=== PATIENT | female | born 1965 | race Caucasian/White ===

== ENCOUNTER 2016-04-19 21:51 | Emergency (ER) | payer SELFPAY ==
[2016-04-19] MEDS ORDERED: ASPIRIN 81 MG TABLET, CHEWABLE PO ONE (23:09)
[2016-04-19 23:57] LABS: ABSOLUTE EOSINOPHILS # (AUTO) 0.1 10^3/uL (0.0-0.6); ABSOLUTE LYMPHOCYTES (AUTO) 0.6 10^3/uL (0.5-4.7); ABSOLUTE MONOCYTES (AUTO) 0.4 10^3/uL (0.1-1.4); ABSOLUTE NEUT (AUTO) 2.7 10^3/uL (1.7-8.2); BASOPHILS % (AUTO) 0.7 % (0-2); EOSINOPHILS % (AUTO) 1.9 % (0-6); HEMATOCRIT 38.1 % (36.0-47.0); HEMOGLOBIN 12.9 g/dL (12.0-15.5); HGB HCT DIFFERENCE 0.6; LYMPHOCYTES % (AUTO) 15.5 % (13-45); MEAN CORPUSCULAR HEMOGLOBIN 29.5 pg (27.0-33.4); MEAN CORPUSCULAR VOLUME 87 fl (80-97); MONOCYTES % (AUTO) 10.9 % (3-13); RED BLOOD COUNT 4.39 10^6/uL (3.72-5.28); RED CELL DISTRIBUTION WIDTH 14.5 % (11.5-14.0); WHITE BLOOD COUNT 3.7 10^3/uL (4.0-10.5)
--- NOTE | 2016-04-20 00:10 | EKG REPORT ---
SEVERITY:- ABNORMAL ECG - ATRIAL-PACED RHYTHM : Confirmed by: Andrzej Stewart 20-Apr-2016 00:10:01
[2016-04-20 00:21] LABS: ALANINE AMINOTRANSFERASE 30 U/L (9-52); ALBUMIN 4.2 g/dL (3.5-5.0); ALKALINE PHOSPHATASE 86 U/L (38-126); ANION GAP 9 (5-19); ASPARTATE AMINO TRANSFERASE 35 U/L (14-36); BILIRUBIN,TOTAL 0.5 mg/dL (0.2-1.3); BLOOD UREA NITROGEN 11 mg/dL (7-20); CALCIUM 9.5 mg/dL (8.4-10.2); CARBON DIOXIDE 27 mmol/L (22-30); CHLORIDE 101 mmol/L (98-107); CREATINE KINASE 54 U/L (30-135); CREATININE RESULT 0.79 mg/dL (0.52-1.25); GLUCOSE 97 mg/dL (75-110); POTASSIUM 4.3 mmol/L (3.6-5.0); SODIUM 136.6 mmol/L (137-145); TOTAL PROTEIN 6.8 g/dL (6.3-8.2)
[2016-04-20 00:32] LABS: CREATINE KINASE MB 0.73 ng/mL (<4.55); TROPONIN I < 0.012 ng/mL
[2016-04-20 06:33] VITALS: BP 123/52
[2016-04-20] MEDS ORDERED: HYDROXYZINE PAMOATE 50 MG CAPSULE PO ONE (06:58)
--- NOTE | 2016-04-20 07:02 | ER Document Report ---
ED General - General Time seen by provider: 06:48 Mode of Arrival: Ambulatory Information source: Patient - HPI Onset: Other - see HPI note <ALFIE INFANTE - Last Filed: 04/20/16 08:32> <SKIP BERGER - Last Filed: 04/20/16 09:12> - General Chief Complaint: Chest Pain Stated Complaint: CHEST PAIN Notes: Patient is a 51 year old female presenting to the emergency department for some anxiety and is unsure if her pacemaker is working properly. Patient states that he just recently got out of residential. Patient was started on eliquis after having her pacemaker placed in November 2015. Patient states she is concerned about her blood pressure and possible blood clots since she has run out of her eliquis. Patient also complains of some anxiety and states she has been scratching her upper and lower extremities bilaterally; patient states that this occurred while he was in residential as well. Patient believes that this is related to her anxiety. Patient has not established a PCP because she is waiting for her medicaid and medicare disability. Patient had a ASD patch placed in 1968 and it was repaired/replaced in January 2015. Patient's pacemaker was placed from chronic A-fib. Patient has recently been started on pristiq. Patient was in residential for approximately 4.5 years according to [facility] records. Patient states she is trying to re-adjust to her life now since she is no longer in residential. (ALFIE INFANTE) - Related Data Allergies/Adverse Reactions: No Known Allergies Allergy (Unverified 04/19/16 23:06) Past Medical History - General Information source: Patient, [facility] Records - Social History Smoking Status: Current Every Day Smoker Frequency of alcohol use: None Drug Abuse: None Family History: None Patient has suicidal ideation: No Patient has homicidal ideation: No - Past Medical History Cardiac Medical History: Reports: Hx Atrial Fibrillation, Hx Hypertension Psychiatric Medical History: Reports: Hx Anxiety, Hx Depression Past Surgical History: Reports: Hx Cardiac Surgery - x2: ASD patch placed in 1968, repaired/replaced 2014, Hx Pacemaker - 2015 - Immunizations Hx Diphtheria, Pertussis, Tetanus Vaccination: No <ALFIE INFANTE - Last Filed: 04/20/16 08:32> Review of Systems - Review of Systems Constitutional: No symptoms reported EENT: No symptoms reported Cardiovascular: See HPI Respiratory: No symptoms reported Gastrointestinal: See HPI, Nausea Genitourinary: No symptoms reported Female Genitourinary: No symptoms reported Musculoskeletal: No symptoms reported Skin: See HPI Hematologic/Lymphatic: No symptoms reported Neurological/Psychological: See HPI -: Yes All other systems reviewed and negative <ALFIE INFANTE - Last Filed: 04/20/16 08:32> Physical Exam - Vital signs Interpretation: Normal - General General appearance: Appears well, Alert In distress: Mild - HEENT Head: Normocephalic, Atraumatic Eyes: Normal Pupils: PERRL Mucous membranes: Moist - Respiratory Respiratory status: No respiratory distress Chest status: Nontender Breath sounds: Normal Chest palpation: Normal - Cardiovascular Rhythm: Regular Heart sounds: Normal auscultation Murmur: No - Abdominal Inspection: Obese Distension: No distension Bowel sounds: Normal Tenderness: Nontender Organomegaly: No organomegaly - Back Back: Normal, Nontender - Extremities General upper extremity: Normal ROM, Normal strength General lower extremity: Normal ROM, Normal strength. No: Edema - Neurological Neuro grossly intact: Yes Cognition: Normal Orientation: AAOx4 [place] Coma Scale Eye Opening: Spontaneous [place] Coma Scale Verbal: Oriented [place] Coma Scale Motor: Obeys Commands [place] Coma Scale Total: 15 Speech: Normal - Psychological Associated symptoms: Normal affect, Anxious - Skin Skin Temperature: Warm Skin Moisture: Dry Skin irregularity: other <ALFIE INFANTE - Last Filed: 04/20/16 08:32> Course - Laboratory Result Diagrams: 04/19/16 23:37 04/19/16 23:37 <ALFIE INFANTE - Last Filed: 04/20/16 08:32> - Laboratory Result Diagrams: 04/19/16 23:37 04/19/16 23:37 - Diagnostic Test Radiology reviewed: Image reviewed, Reports reviewed - Chest x-ray does not show any acute process - EKG Interpretation by Me EKG shows normal: Ranger, Intervals, QRS Complexes, ST-T Waves Rate: Normal - 61 Rhythm: Other <SKIP BERGER - Last Filed: 04/20/16 09:12> - Re-evaluation Re-evalutation: 04/20/16 08:18 I told the patient I would try to have the hospitalist come see her to facilitate her getting her Eliquis which she cannot afford. They have access to programs for indigent patients to help with this medication , in the emergency room we do not have the same access. At the time told her this, the hospitalists were in their morning patient exchange/report and it would be at least 30 minutes before they would answer the phones. The patient decided she would not wait and left during the time frame when the hospitalists would not answer. She told the nurse she would just go to the [facility] to get her medicine. (SKIP BERGER) - Vital Signs Vital signs: Temp Pulse Resp BP Pulse Ox 100.4 F 63 18 123/52 L 99 04/19/16 23:02 04/19/16 23:02 04/20/16 06:02 04/20/16 06:02 04/20/16 07:13 (ALFIE INFANTE) (SKIP BERGER) - Laboratory Laboratory results interpreted by me: 04/19/16 04/19/16 23:37 23:37 WBC 3.7 L RDW 14.5 H Plt Count 117 L Sodium 136.6 L (ALFIE INFANTE) (SKIP BERGER) Discharge <ALFIE INFANTE - Last Filed: 04/20/16 08:32> <SKIP BERGER - Last Filed: 04/20/16 09:12> - Discharge Clinical Impression: Has run out of medications, Pruritus, Anxiety Condition: Stable Disposition: ELOPED Scribe Attestation: 04/20/16 09:12 I personally performed the services described in the documentation, reviewed and edited the documentation which was dictated to the scribe in my presence, and it accurately records my words and actions. (SKIP BERGER) Scribe Documentation - Scribe Written by Tio:: Alfie Infante 04/20/16 8:40 acting as scribe for :: Sandip <ALFIE INFANTE - Last Filed: 04/20/16 08:32>
== END 2016-04-20 07:30 | disposition left against medical advice (07) ==
LOC: ER 21:51
DX: L29.9 Pruritus, unspecified (principal); F41.9 Anxiety disorder, unspecified; R07.9 Chest pain, unspecified; E66.9 Obesity, unspecified; F17.200 Nicotine dependence, unspecified, uncomplicated; Z95.0 Presence of cardiac pacemaker; Z79.02 Long term (current) use of antithrombotics/antiplatelets; Z53.9 Procedure and treatment not carried out, unspecified reason
CPT/HCPCS: 36415; 71010; 80053; 82550; 82553; 84484; 85025; 93005; 93010; 99281

== ENCOUNTER 2016-12-05 19:13 | Emergency (ER) | payer MEDICARE, OTHER ==
[2016-12-05 19:31] VITALS: BP 126/56
[2016-12-05] MEDS ORDERED: HYDROCODONE/ACETAMINOPHEN 5-325 MG 6 TAB/DSPK PO PRN (19:42)
--- NOTE | 2016-12-05 19:42 | ER Document Report ---
HPI - HPI Patient complains to provider of: bilateral wrist pain Pain Level: 5 Context: Patient is a 51-year-old female presents emergency department complaining of worsening carpal tunnel pain. Patient states that she was diagnosed with this 2 months ago and placed in splints. She states she has been wearing them at night with minimal improvement in her symptoms. Patient states that she has not been able sleep over the past couple nights secondary to the pain. Patient states that she is been to follow-up with her primary care provider this week. - REPRODUCTIVE Reproductive: DENIES: : - DERM Skin Color: Normal Past Medical History - Social History Smoking Status: Current Every Day Smoker Family History: None Patient has suicidal ideation: No Patient has homicidal ideation: No - Past Medical History Cardiac Medical History: Reports: Hx Atrial Fibrillation, Hx Hypertension Renal/ Medical History: Denies: Hx Peritoneal Dialysis Psychiatric Medical History: Reports: Hx Anxiety, Hx Depression Past Surgical History: Reports: Hx Cardiac Surgery - x2: ASD patch placed in 1968, repaired/replaced 2014, Hx Pacemaker - 2015 - Immunizations Hx Diphtheria, Pertussis, Tetanus Vaccination: No Vertical Provider Document - CONSTITUTIONAL Agree With Documented VS: Yes Exam Limitations: No Limitations General Appearance: WD/WN, No Apparent Distress Notes: PHYSICAL EXAM GENERAL: Alert, interacts well. ABDOMEN: Soft, nondistended, nontender. No guarding, rebound, or rigidity.. Bowel sounds present in all 4 quadrants. EXTREMITIES: Positive Tinel sign in bilateral wrists reproducible symptoms with reversed prior stimulation moves all 4 extremities spontaneously. No edema, radial and radial pulses 2/4 bilaterally. No cyanosis. NEUROLOGICAL: Alert and oriented x4. Normal speech. PSYCH: Normal affect, normal mood. SKIN: Warm, dry, normal turgor. No rashes or lesions noted. - INFECTION CONTROL TRAVEL OUTSIDE OF THE [place] IN LAST 30 DAYS: No - RESPIRATORY O2 Sat by Pulse Oximetry: 97 Course - Re-evaluation Re-evalutation: 12/05/16 20:26 Patient is a 51-year-old female is hemodynamic stable, no acute distress and afebrile. Presentation is consistent with carpal tunnel syndrome. Patient initiated on steroid and told to follow-up with her primary care provider. Patient was sent home with a limited amount of pain medication to help with her sleeping. Patient agrees with plan and stable for discharge. - Vital Signs Vital signs: Temp Pulse Resp BP Pulse Ox 98.5 F 59 L 18 126/56 H 97 12/05/16 19:28 12/05/16 19:28 12/05/16 19:28 12/05/16 19:28 12/05/16 19:28 Discharge - Discharge Clinical Impression: Carpal tunnel syndrome Condition: Good Disposition: HOME, SELF-CARE Instructions: Carpal Tunnel Syndrome ([facility]) Additional Instructions: Please continue using your splints 20/09. Follow up with your primary care for possible referral for surgery Prescriptions: Methylprednisolone [Medrol Dosepack (4 mg/Tab) 21 Tab/Dosepak] 4 mg PO ASDIR PRN #21 tab.ds.[id number] PRN Reason: Referrals: DEANNA RUSSO DO [ACTIVE STAFF] - Follow up as needed
== END 2016-12-05 19:55 | disposition home or self-care (01) ==
LOC: ER 19:13
DX: G56.03 Carpal tunnel syndrome, bilateral upper limbs (principal); F17.200 Nicotine dependence, unspecified, uncomplicated; I48.91 Unspecified atrial fibrillation; I10 Essential (primary) hypertension; Z95.0 Presence of cardiac pacemaker
CPT/HCPCS: 99283; A9270

== ENCOUNTER 2017-01-05 11:02 | Inpatient (IN) | payer MEDICARE, OTHER ==
[2017-01-05] MEDS ORDERED: NORMAL SALINE 1000 ML 1,000 ML IV ONE (11:33)
--- NOTE | 2017-01-05 11:34 | ER Document Report ---
ED Medical Screen (RME) - General Chief Complaint: Abnormal Lab Results Stated Complaint: SHORTNESS OF BREATH/ABNORMAL LABS Time Seen by Provider: 01/05/17 11:32 Notes: Patient states she has been short of breath and weak for 1 week. She states she went to an urgent care yesterday and had some labs drawn. She states she received a phone call this morning told her that her hemoglobin was 6. Patient states she has a history of atrial fibrillation and the rate is been hard to control so a pacemaker has been placed. She states she was on Eliquis up until 6 days ago due to this condition. Eliquis was stopped because she was going to have carpal tunnel surgery. She states she has been having black tarry stools last several days. TRAVEL OUTSIDE OF THE [place] IN LAST 30 DAYS: No - Related Data Allergies/Adverse Reactions: carbamazepine [From Tegretol] Allergy (Verified 01/05/17 11:04) Past Medical History - Social History Chew tobacco use (# tins/day): No Frequency of alcohol use: None Drug Abuse: None - Past Medical History Cardiac Medical History: Reports: Hx Atrial Fibrillation, Hx Hypertension Renal/ Medical History: Denies: Hx Peritoneal Dialysis Psychiatric Medical History: Reports: Hx Anxiety, Hx Depression Past Surgical History: Reports: Hx Cardiac Surgery - x2: ASD patch placed in 1968, repaired/replaced 2014, Hx Pacemaker - 2015 - Immunizations Hx Diphtheria, Pertussis, Tetanus Vaccination: No Physical Exam - Vital signs Vitals: Temp Pulse Resp BP Pulse Ox 98.6 F 94 20 143/67 H 99 01/05/17 11:06 01/05/17 11:06 01/05/17 11:06 01/05/17 11:06 01/05/17 11:06 Course - Vital Signs Vital signs: Temp Pulse Resp BP Pulse Ox 98.6 F 94 20 143/67 H 99 01/05/17 11:06 01/05/17 11:06 01/05/17 11:06 01/05/17 11:06 01/05/17 11:06
[2017-01-05 12:26] LABS: APPEARANCE,URINE SLIGHTLY-CLOUDY; BILIRUBIN,URINE NEGATIVE (NEGATIVE); GLUCOSE, URINE NEGATIVE (NEGATIVE); KETONES,URINE NEGATIVE (NEGATIVE); LEUKOCYTE ESTERASE,URINE TRACE (NEGATIVE); NITRITE,URINE NEGATIVE (NEGATIVE); PROTEIN,URINE NEGATIVE (NEGATIVE); URINE SPECIFIC GRAVITY 1.017; UROBILINOGEN,URINE NEGATIVE mg/dL (<2.0)
[2017-01-05 12:29] LABS: ABSOLUTE EOSINOPHILS # (AUTO) 0.2 10^3/uL (0.0-0.6); ABSOLUTE LYMPHOCYTES (AUTO) 0.7 10^3/uL (0.5-4.7); ABSOLUTE MONOCYTES (AUTO) 0.7 10^3/uL (0.1-1.4); ABSOLUTE NEUT (AUTO) 2.9 10^3/uL (1.7-8.2); BASOPHILS % (AUTO) 0.4 % (0-2); HEMATOCRIT 21.9 % (36.0-47.0); HGB HCT DIFFERENCE 0.6; LYMPHOCYTES % (AUTO) 16.2 % (13-45); MEAN CORPUSCULAR HGB CONC 34.1 g/dL (32.0-36.0); MEAN CORPUSCULAR VOLUME 88 fl (80-97); MONOCYTES % (AUTO) 14.8 % (3-13); RED BLOOD COUNT 2.49 10^6/uL (3.72-5.28); RED CELL DISTRIBUTION WIDTH 14.4 % (11.5-14.0); SEGMENTED NEUTROPHILS % (AUTO) 64.6 % (42-78); WHITE BLOOD COUNT 4.5 10^3/uL (4.0-10.5)
[2017-01-05 12:34] LABS: HEMOGLOBIN 7.5 g/dL (12.0-15.5)
[2017-01-05 12:46] LABS: ALANINE AMINOTRANSFERASE 30 U/L (9-52); ALBUMIN 3.5 g/dL (3.5-5.0); ALKALINE PHOSPHATASE 54 U/L (38-126); ANION GAP 10 (5-19); ASPARTATE AMINO TRANSFERASE 23 U/L (14-36); BILIRUBIN,DIRECT 0.2 mg/dL (0.0-0.4); BILIRUBIN,TOTAL 0.4 mg/dL (0.2-1.3); BLOOD UREA NITROGEN 19 mg/dL (7-20); CALCIUM 9.1 mg/dL (8.4-10.2); CARBON DIOXIDE 23 mmol/L (22-30); CHLORIDE 106 mmol/L (98-107); CREATININE RESULT 0.93 mg/dL (0.52-1.25); GLUCOSE 95 mg/dL (75-110); POTASSIUM 4.8 mmol/L (3.6-5.0); SODIUM 139.4 mmol/L (137-145); TOTAL PROTEIN 5.8 g/dL (6.3-8.2)
[2017-01-05] MEDS ORDERED: PANTOPRAZOLE SODIUM 40 MG VIAL IV ONE (13:26)
[2017-01-05] MEDS ORDERED: PANTOPRAZOLE SODIUM 40 MG VIAL IV PRN ×2 (13:27→14:42)
[2017-01-05] MEDS ORDERED: NORMAL SALINE 250 ML IV PRN ×4 (13:36→15:16)
--- NOTE | 2017-01-05 14:20 | RADIOLOGY REPORT (SQ) ---
EXAM DESCRIPTION: ACUTE ABDOMEN SERIES COMPLETED DATE/TIME: 01/05/2017 2:10 pm REASON FOR STUDY: epi pain COMPARISON: None. NUMBER OF VIEWS: Three views. TECHNIQUE: Frontal chest, supine abdomen and upright abdomen radiographic images acquired. LIMITATIONS: None. FINDINGS: CHEST: Lungs clear of infiltrates. FREE AIR: None. No abnormal gas collections. BOWEL GAS PATTERN: Nonobstructive pattern. No dilated loops or air fluid levels. CALCIFICATIONS: No suspicious calcifications. HARDWARE: None in the abdomen. SOFT TISSUES: No gross mass or suggestion of organomegaly. BONES: No acute fracture. No worrisome bone lesions. OTHER: No other significant finding. IMPRESSION: NO RADIOGRAPHIC EVIDENCE FOR ACUTE ABDOMINAL DISEASE. TECHNICAL DOCUMENTATION: JOB ID: [id number] [employer]- All Rights Reserved
[2017-01-05 14:40] LABS: PARTIAL THROMBOPLASTIN TIME 30.4 SEC (23.5-35.8); PROTHROMBIN TIME 13.3 SEC (11.4-15.4)
--- NOTE | 2017-01-05 14:47 | ER Document Report ---
ED General - General Chief Complaint: Abnormal Lab Results Stated Complaint: SHORTNESS OF BREATH/ABNORMAL LABS Time Seen by Provider: 01/05/17 11:32 TRAVEL OUTSIDE OF THE [place] IN LAST 30 DAYS: No - HPI Patient complains to provider of: Abnormal laboratory studies Notes: Patient coming in for evaluation of abnormal laboratory studies. Patient states recently released from snf having epigastric abdominal pain with this to a local urgent care where laboratory studies were performed states that she was notified her hemoglobin was 6 or 6.5 by local urgent care and told to come to the ER. Patient states increased use of anti-inflammatory medications especially Advil. Patient denies a history of GI bleed in the past. Patient states history of atrial fibrillation recently stopped her Eliquis due to a scheduled upcoming surgery. Patient states coming in for shortness of breath and fatigue as well. Denies any alcohol use. Patient resting comfortably upon my evaluation. States black stools ongoing for the last 3-4 days. - Related Data Allergies/Adverse Reactions: carbamazepine [From Tegretol] Allergy (Verified 01/05/17 11:04) Home Medications: Current Home Medications Divalproex Sodium [Depakote] 500 mg PO Q12 01/05/17 [History] Escitalopram Oxalate [Lexapro] 40 mg PO DAILY 01/05/17 [History] Ibuprofen [Advil] 400 mg PO BIDP PRN 01/05/17 [History] Levothyroxine Sodium [Synthroid] 125 mcg PO QAM 01/05/17 [History] Meloxicam [Mobic] 7.5 mg PO DAILYP PRN 01/05/17 [History] Naproxen Sodium [Aleve] 440 mg PO BIDP PRN 01/05/17 [History] Ropinirole HCl [Requip] 0.5 mg PO Q12 01/05/17 [History] Trazodone HCl [Desyrel] 100 mg PO DAILY 01/05/17 [History] Past Medical History - Social History Smoking Status: Former Smoker Chew tobacco use (# tins/day): No Frequency of alcohol use: None Drug Abuse: None Family History: None Patient has suicidal ideation: No Patient has homicidal ideation: No - Past Medical History Cardiac Medical History: Reports: Hx Atrial Fibrillation, Hx Hypertension Renal/ Medical History: Denies: Hx Peritoneal Dialysis Psychiatric Medical History: Reports: Hx Anxiety, Hx Depression Past Surgical History: Reports: Hx Cardiac Surgery - x2: ASD patch placed in 1968, repaired/replaced 2014, Hx Pacemaker - 2015 - Immunizations Hx Diphtheria, Pertussis, Tetanus Vaccination: No Review of Systems - Review of Systems Constitutional: No symptoms reported EENT: No symptoms reported Cardiovascular: No symptoms reported Respiratory: No symptoms reported Gastrointestinal: Abdominal pain, Black stools, Rectal bleeding Genitourinary: No symptoms reported Female Genitourinary: No symptoms reported Musculoskeletal: No symptoms reported Skin: No symptoms reported Hematologic/Lymphatic: No symptoms reported Neurological/Psychological: No symptoms reported Physical Exam - Vital signs Vitals: Temp Pulse Resp BP Pulse Ox 98.6 F 94 20 143/67 H 99 01/05/17 11:06 01/05/17 11:06 01/05/17 11:06 01/05/17 11:06 01/05/17 11:06 Interpretation: Normal - General General appearance: Appears well, Alert - HEENT Head: Normocephalic, Atraumatic Eyes: Normal Pupils: PERRL - Respiratory Respiratory status: No respiratory distress Chest status: Nontender Breath sounds: Normal Chest palpation: Normal - Cardiovascular Rhythm: Regular Heart sounds: Normal auscultation Murmur: No - Abdominal Inspection: Normal Distension: No distension Bowel sounds: Normal Tenderness: Tender - Epigastric abdominal pain mild on examination no guarding or rebound Organomegaly: No organomegaly - Rectal Stool: Heme negative, Other - No stool in rectal vault - Back Back: Normal, Nontender - Extremities General upper extremity: Normal inspection, Nontender, Normal color, Normal ROM , Normal temperature General lower extremity: Normal inspection, Nontender, Normal color, Normal ROM , Normal temperature, Normal weight bearing. No: Parag's sign - Neurological Neuro grossly intact: Yes Cognition: Normal Orientation: AAOx4 [place] Coma Scale Eye Opening: Spontaneous [place] Coma Scale Verbal: Oriented [place] Coma Scale Motor: Obeys Commands [place] Coma Scale Total: 15 Speech: Normal Motor strength normal: LUE, RUE, LLE, RLE Sensory: Normal - Psychological Associated symptoms: Normal affect, Normal mood - Skin Skin Temperature: Warm Skin Moisture: Dry Skin Color: Normal Course - Re-evaluation Re-evalutation: 01/05/17 15:55 Hemoccult was negative although the patient does have anemia and considering the patient's history of NSAID use and history given of black stools patient will be admitted for GI bleed. Patient was started on Protonix and a Protonix drip. Discussed with the hospitalist will admit the patient for further evaluation. - Vital Signs Vital signs: Temp Pulse Resp BP Pulse Ox 98.6 F 94 20 143/67 H 99 01/05/17 11:06 01/05/17 11:06 01/05/17 11:06 01/05/17 11:06 01/05/17 11:06 - Laboratory Result Diagrams: 01/05/17 11:50 01/05/17 11:50 Laboratory results interpreted by me: 01/05/17 01/05/17 01/05/17 11:50 11:50 11:50 RBC 2.49 L Hgb 7.5 L Hct 21.9 L RDW 14.4 H Monocytes % 14.8 H Total Protein 5.8 L Ur Leukocyte Esterase Crossmatch See Detail 01/05/17 11:50 RBC Hgb Hct RDW Monocytes % Total Protein Ur Leukocyte Esterase TRACE H Crossmatch Discharge - Discharge Clinical Impression: GI bleed Qualifiers: GI bleed type/associated pathology: unspecified gastrointestinal hemorrhage type Qualified Code(s): K92.2 - Gastrointestinal hemorrhage, unspecified Anemia Qualifiers: Anemia type: other cause Other causes of anemia: acute posthemorrhagic Qualified Code(s): D62 - Acute posthemorrhagic anemia Condition: Good Disposition: ADMITTED INPATIENT Admitting Provider: Hospitalist - [facility] Admitted: [facility] Referrals: KAREL DUCKWORTH PA [Primary Care Provider] - Follow up as needed
[2017-01-05] MEDS: RINGERS SOLUTION,LACTATED 1,000 ML IV PRN ×2 (15:15→21:19)
[2017-01-05] MEDS: NORMAL SALINE 100 ML with PANTOPRAZOLE SODIUM 80 MG IV PRN ×2 (15:16)
[2017-01-05] MEDS ORDERED: FUROSEMIDE INJ/PF 20 MG/2 ML SDV IV PRN (15:16)
[2017-01-05 15:26] LABS: HEMATOCRIT 21.7 % (36.0-47.0); HGB HCT DIFFERENCE 1.1; MEAN CORPUSCULAR HEMOGLOBIN 30.2 pg (27.0-33.4); MEAN CORPUSCULAR HGB CONC 34.8 g/dL (32.0-36.0); MEAN CORPUSCULAR VOLUME 87 fl (80-97); RED CELL DISTRIBUTION WIDTH 14.5 % (11.5-14.0); WHITE BLOOD COUNT 4.4 10^3/uL (4.0-10.5)
[2017-01-05] MEDS: ONDANSETRON HCL INJ/PF 4 MG/2 ML SDV IV PRN (15:35)
--- NOTE | 2017-01-05 15:40 | PDOC H&P ---
History of Present Illness Admission Date/PCP: SELINA REILLY January 05, 2017 Patient complains of: Stomach pain worse since yesterday History of Present Illness: KANDI GUTIERREZ is a 51 year old female presented to the emergency room complaining of stomach pain going all the way to her back which had worsened since yesterday. Patient states that she has been having pain off and on during the course of 1 year. However recently she had been having weakness, dizziness and nausea and she went to see her primary care provider at the urgent care. Blood work was obtained yesterday and then she was called in today and told her hemoglobin was very low and that she needed to come to emergency room. Patient complains of passing black tarry stool last week. She stopped taking Eliquis (she was placed on these medication due to a prior history of atrial fibrillation secondary to ASD). She took herself off as she was anticipating to undergo carpal tunnel syndrome. She also complain of easy bruising while on this medication. She suffers from bipolar disorder and takes Lexapro and Depakote. She has been treating the pain with Motrin and Advil. When evaluated in the emergency room hemoglobin was still low and the hospitalist service was contacted for further management. Patient has been started on Protonix drip while in emergency room. Past Medical History Cardiac Medical History: Reports: Atrial Fibrillation, Hypertension Pulmonary Medical History: Reports: Sleep Apnea Endocrine Medical History: Reports: Hypothyroidism Musculoskeltal Medical History: Reports: Other - Bilateral carpal tunnel Musculoskeletal History Note: Restless leg syndrome Psychiatric Medical History: Reports: Bipolar Disorder, Depression Past Surgical History Past Surgical History: Reports: Pacemaker - 2015, Other - ASD repair Social History Smoking Status: Former Smoker Drugs: None Hx Prescription Drug Abuse: No Family History Family History: None Parental Family History Reviewed: Yes Children Family History Reviewed: Yes Sibling(s) Family History Reviewed.: Yes Medication/Allergy Allergies/Adverse Reactions: carbamazepine [From Tegretol] Allergy (Verified 01/05/17 11:04) Review of Systems Constitutional: PRESENT: fatigue, weakness, weight gain Eyes: ABSENT: visual disturbances Ears: ABSENT: hearing changes Nose, Mouth, and Throat: ABSENT: headache(s), mouth pain, sore throat Cardiovascular: PRESENT: dyspnea on exertion, edema Respiratory: PRESENT: dyspnea Gastrointestinal: PRESENT: abdominal pain, bloating, hematochezia, nausea Genitourinary: ABSENT: dysuria, hematuria Musculoskeletal: ABSENT: deformity, joint swelling Integumentary: PRESENT: lesions Neurological: PRESENT: weakness. ABSENT: abnormal gait Psychiatric: PRESENT: depression Hematologic/Lymphatic: PRESENT: easy bruising Physical Exam Vital Signs: Temp Pulse Resp BP Pulse Ox 98.6 F 94 20 143/67 H 99 01/05/17 11:06 01/05/17 11:06 01/05/17 11:06 01/05/17 11:06 01/05/17 11:06 Intake & Output 01/04/17 01/05/17 01/06/17 06:59 06:59 06:59 Weight 105 kg General appearance: PRESENT: no acute distress, cooperative, morbidly obese Head exam: PRESENT: atraumatic, normocephalic Eye exam: PRESENT: EOMI, PERRLA Ear exam: PRESENT: normal external ear exam Mouth exam: PRESENT: moist, neck supple Neck exam: PRESENT: full ROM. ABSENT: JVD, lymphadenopathy, tenderness, thyromegaly Respiratory exam: PRESENT: clear to auscultation lulu Cardiovascular exam: PRESENT: RRR. ABSENT: diastolic murmur, gallop, systolic murmur Vascular exam: PRESENT: normal capillary refill GI/Abdominal exam: PRESENT: distended, normal bowel sounds, tenderness Extremities exam: PRESENT: full ROM, +2 edema Neurological exam: PRESENT: alert, oriented to person, oriented to place, oriented to time Psychiatric exam: PRESENT: anxious Skin exam: PRESENT: other - Ecchymotic lesions in upper and lower extremities Results Laboratory Results: 01/05/17 13:30 01/05/17 01/05/17 01/05/17 11:50 11:50 11:50 WBC 4.5 RBC 2.49 L Hgb 7.5 L Hct 21.9 L MCV 88 MCH 30.0 MCHC 34.1 RDW 14.4 H Plt Count 158 Seg Neutrophils % 64.6 Lymphocytes % 16.2 Monocytes % 14.8 H Eosinophils % 4.0 Basophils % 0.4 Absolute Neutrophils 2.9 Absolute Lymphocytes 0.7 Absolute Monocytes 0.7 Absolute Eosinophils 0.2 Absolute Basophils 0.0 Sodium 139.4 Potassium 4.8 Chloride 106 Carbon Dioxide 23 Anion Gap 10 BUN 19 Creatinine 0.93 Est GFR ( Amer) > 60 Est GFR (Non-Af Amer) > 60 Glucose 95 Calcium 9.1 Total Bilirubin 0.4 AST 23 ALT 30 Alkaline Phosphatase 54 Total Protein 5.8 L Albumin 3.5 Lipase Urine Color Urine Appearance Urine pH Ur Specific Morgan[place] Urine Protein Urine Glucose (UA) Urine Ketones Urine Blood Urine Nitrite Ur Leukocyte Esterase Urine WBC (Auto) Urine RBC (Auto) Stool Occult Blood Blood Type O NEGATIVE Antibody Screen NEGATIVE 01/05/17 01/05/17 01/05/17 11:50 13:25 13:27 WBC RBC Hgb Hct MCV MCH MCHC RDW Plt Count Seg Neutrophils % Lymphocytes % Monocytes % Eosinophils % Basophils % Absolute Neutrophils Absolute Lymphocytes Absolute Monocytes Absolute Eosinophils Absolute Basophils Sodium Potassium Chloride Carbon Dioxide Anion Gap BUN Creatinine Est GFR ( Amer) Est GFR (Non-Af Amer) Glucose Calcium Total Bilirubin AST ALT Alkaline Phosphatase Total Protein Albumin Lipase 103.1 Urine Color YELLOW Urine Appearance SLIGHTLY-CLOUDY Urine pH 5.0 Ur Specific [place] 1.017 Urine Protein NEGATIVE Urine Glucose (UA) NEGATIVE Urine Ketones NEGATIVE Urine Blood NEGATIVE Urine Nitrite NEGATIVE Ur Leukocyte Esterase TRACE H Urine WBC (Auto) 1 Urine RBC (Auto) 0 Stool Occult Blood NEGATIVE Blood Type Antibody Screen 01/05/17 01/05/17 13:30 13:30 WBC Cancelled RBC Cancelled Hgb Cancelled Hct Cancelled MCV Cancelled MCH Cancelled MCHC Cancelled RDW Cancelled Plt Count Cancelled Seg Neutrophils % Cancelled Lymphocytes % Cancelled Monocytes % Cancelled Eosinophils % Cancelled Basophils % Cancelled Absolute Neutrophils Cancelled Absolute Lymphocytes Cancelled Absolute Monocytes Cancelled Absolute Eosinophils Cancelled Absolute Basophils Cancelled Sodium Cancelled Potassium Cancelled Chloride Cancelled Carbon Dioxide Cancelled Anion Gap Cancelled BUN Cancelled Creatinine Cancelled Est GFR ( Amer) Cancelled Est GFR (Non-Af Amer) Cancelled Glucose Cancelled Calcium Cancelled Total Bilirubin AST ALT Alkaline Phosphatase Total Protein Albumin Lipase Urine Color Urine Appearance Urine pH Ur Specific Morganza Urine Protein Urine Glucose (UA) Urine Ketones Urine Blood Urine Nitrite Ur Leukocyte Esterase Urine WBC (Auto) Urine RBC (Auto) Stool Occult Blood Blood Type Antibody Screen Impressions: Acute Abdomen Series 01/05/17 13:26 IMPRESSION: NO RADIOGRAPHIC EVIDENCE FOR ACUTE ABDOMINAL DISEASE. Assessment & Plan - Diagnosis (1) Bipolar disorder (manic depression) Qualifiers: Current bipolar episode type: hypomanic Is this a current diagnosis for this admission?: Yes Plan: Will hold of antipsychotic medications. (2) Anemia Qualifiers: Anemia type: other cause Other causes of anemia: acute posthemorrhagic Qualified Code(s): D62 - Acute posthemorrhagic anemia Is this a current diagnosis for this admission?: Yes Plan: Patient will be admitted to intensive care unit. Hemoglobin will be trended every 6 hours. Will order transfusion of 1 packed red blood cells with administration of Lasix 20 mg IV prior to transfusing. (3) GI bleed Qualifiers: GI bleed type/associated pathology: unspecified gastrointestinal hemorrhage type Qualified Code(s): K92.2 - Gastrointestinal hemorrhage, unspecified Is this a current diagnosis for this admission?: Yes Plan: Likely due to peptic ulcer disease secondary to NSAIDs and SSRIs. Will continue with Protonix drip. Contacted Dr. Murray who advised for patient to remain n.p.o. for EGD likely in AM (4) Atrial fibrillation Qualifiers: Atrial fibrillation type: paroxysmal Qualified Code(s): I48.0 - Paroxysmal atrial fibrillation Is this a current diagnosis for this admission?: Yes Plan: At the time of evaluation patient is in sinus. I do not know why this patient was placed on Eliquis since not approved for the treatment of atrial fibrillation in the setting of ASD. Patient has been advised as to follow-up with her contracts advisor. For now patient is not to continue this medication due to gastrointestinal bleeding. - Time Time Spent: 50 to 70 Minutes Medications reviewed and adjusted accordingly: Yes Anticipated discharge: Home - Inpatient Certification Based on my medical assessment, after consideration of the patient's comorbidities, presenting symptoms, or acuity I expect that the services needed warrant INPATIENT care.: Yes I certify that my determination is in accordance with my understanding of Medicare's requirements for reasonable and necessary INPATIENT services [42 CFR 412.3e].: Yes Medical Necessity: Need Close Monitoring Due to Risk of Patient Decompensation, Need For IV Fluids, Need for Surgery
[2017-01-05 16:01] LABS: HEMOGLOBIN 7.6 g/dL (12.0-15.5)
--- NOTE | 2017-01-05 17:20 | PDOC CONSULTATION ---
Consultation Consult Date: 01/05/17 Attending physician:: MELISSA MONTEJO Consult reason:: black tarry stools History of Present Illness Admission Date/PCP: 01/05/17 14:43 SELINA REILLY History of Present Illness: I have been asked to see this patient by the hospitalist service patient has been admitted for profound anemia it looks as though she had some blood loss as evidenced by dark tarry stool she had been on Eliquis which has since been stopped however she has been taking NSAIDS as well she is complaining of abdominal pain no hematemesis but there is some melena there is no weight loss patient states appetite is decreased , some mild early satiety Past Medical History Cardiac Medical History: Reports: Atrial Fibrillation, Hypertension Pulmonary Medical History: Reports: Sleep Apnea Endocrine Medical History: Reports: Hypothyroidism Musculoskeltal Medical History: Reports: Other - Bilateral carpal tunnel Psychiatric Medical History: Reports: Bipolar Disorder, Depression Past Surgical History Past Surgical History: Reports: Pacemaker - 2015, Other - ASD repair Social History Smoking Status: Former Smoker Drugs: None Hx Prescription Drug Abuse: No Family History Family History: None Parental Family History Reviewed: Yes Children Family History Reviewed: Unknown Sibling(s) Family History Reviewed.: Unknown Medication/Allergy Home Medications: Divalproex Sodium [Depakote] 500 mg PO Q12 01/05/17 Escitalopram Oxalate [Lexapro] 40 mg PO DAILY 01/05/17 Ibuprofen [Advil] 400 mg PO BIDP PRN 01/05/17 Levothyroxine Sodium [Synthroid] 125 mcg PO QAM 01/05/17 Meloxicam [Mobic] 7.5 mg PO DAILYP PRN 01/05/17 Naproxen Sodium [Aleve] 440 mg PO BIDP PRN 01/05/17 Ropinirole HCl [Requip] 0.5 mg PO Q12 01/05/17 Trazodone HCl [Desyrel] 100 mg PO DAILY 01/05/17 Allergies/Adverse Reactions: carbamazepine [From Tegretol] Allergy (Verified 01/05/17 11:04) Review of Systems Constitutional: ABSENT: fever(s), headache(s), night sweats, weakness Eyes: ABSENT: visual disturbances Ears: ABSENT: hearing changes Nose, Mouth, and Throat: ABSENT: mouth pain Cardiovascular: ABSENT: edema, orthropnea, palpitations Respiratory: ABSENT: dyspnea, hemoptysis Gastrointestinal: PRESENT: abdominal pain, melena. ABSENT: diarrhea, dysphagia , heartburn Genitourinary: ABSENT: dysuria, hematuria Musculoskeletal: ABSENT: deformity, joint swelling Integumentary: ABSENT: lesions, pruritus Neurological: ABSENT: focal weakness, syncope, tingling, tremor(s), vertigo Endocrine: ABSENT: polydipsia, polyphagia, polyuria Hematologic/Lymphatic: ABSENT: easy bruising Physical Exam Vital Signs: Temp Pulse Resp BP Pulse Ox 98.6 F 94 20 143/67 H 99 01/05/17 11:06 01/05/17 11:06 01/05/17 11:06 01/05/17 11:06 01/05/17 11:06 General appearance: PRESENT: no acute distress, well-developed, well-nourished Head exam: PRESENT: atraumatic, normocephalic Eye exam: PRESENT: EOMI, PERRLA. ABSENT: nystagmus, periorbital swelling, scleral icterus Mouth exam: PRESENT: moist Throat exam: ABSENT: tonsillar exudate, tonsillogmegaly Neck exam: ABSENT: meningismus, tenderness, thyromegaly Respiratory exam: PRESENT: symmetrical, unlabored. ABSENT: tachypnea, wheezes Cardiovascular exam: PRESENT: RRR, +S1, +S2 GI/Abdominal exam: PRESENT: soft. ABSENT: rebound, rigid, tenderness Gentrourinary exam: ABSENT: lesions Extremities exam: ABSENT: joint swelling Musculoskeletal exam: PRESENT: full ROM Neurological exam: PRESENT: oriented to time, oriented to situation, CN II-XII grossly intact Psychiatric exam: PRESENT: appropriate affect Skin exam: PRESENT: normal color. ABSENT: mottled, pallor, petechiae, urticaria , vesicles Results Impressions: Acute Abdomen Series 01/05/17 13:26 IMPRESSION: NO RADIOGRAPHIC EVIDENCE FOR ACUTE ABDOMINAL DISEASE. Assessment & Plan - Diagnosis (1) GI bleed Qualifiers: GI bleed type/associated pathology: unspecified gastrointestinal hemorrhage type Qualified Code(s): K92.2 - Gastrointestinal hemorrhage, unspecified Is this a current diagnosis for this admission?: Yes Plan: she is on multiple NSAIDS and has been on Eliquis she likely had an upper GI source she will need to be admitted and stabilized start her on a PPI she will need EGD Risks, benefits and alternatives are explained to the patient in detail further recommendations to follow she is willing to proceed - Time Time Spent: 50 to 70 Minutes
[2017-01-05] MEDS ORDERED: FENTANYL CITRATE INJ/PF 100 MCG/2 ML AMPUL IV ONE (18:31)
[2017-01-05] MEDS: MORPHINE SULFATE 10 MG/ML INJ IV PRN (21:18)
[2017-01-05 22:59] LABS: HGB HCT DIFFERENCE 0.5; MEAN CORPUSCULAR HEMOGLOBIN 29.8 pg (27.0-33.4); MEAN CORPUSCULAR HGB CONC 34.3 g/dL (32.0-36.0); MEAN CORPUSCULAR VOLUME 87 fl (80-97); RED BLOOD COUNT 2.52 10^6/uL (3.72-5.28); RED CELL DISTRIBUTION WIDTH 14.1 % (11.5-14.0); WHITE BLOOD COUNT 4.1 10^3/uL (4.0-10.5)
[2017-01-05 23:01] LABS: HEMOGLOBIN 7.5 g/dL (12.0-15.5)
[2017-01-06] MEDS: MORPHINE SULFATE 10 MG/ML INJ IV PRN ×5 (00:47→20:51)
[2017-01-06] MEDS: ONDANSETRON HCL INJ/PF 4 MG/2 ML SDV IV PRN ×2 (02:44→22:28)
[2017-01-06] MEDS: NORMAL SALINE 100 ML with PANTOPRAZOLE SODIUM 80 MG IV PRN ×4 (03:02→12:42)
[2017-01-06 05:18] LABS: HEMATOCRIT 24.6 % (36.0-47.0); HEMOGLOBIN 8.6 g/dL (12.0-15.5); HGB HCT DIFFERENCE 1.2; MEAN CORPUSCULAR HEMOGLOBIN 29.8 pg (27.0-33.4); MEAN CORPUSCULAR HGB CONC 34.9 g/dL (32.0-36.0); MEAN CORPUSCULAR VOLUME 85 fl (80-97); RED BLOOD COUNT 2.88 10^6/uL (3.72-5.28); RED CELL DISTRIBUTION WIDTH 14.2 % (11.5-14.0); WHITE BLOOD COUNT 4.2 10^3/uL (4.0-10.5)
[2017-01-06 05:24] LABS: BLOOD UREA NITROGEN 15 mg/dL (7-20); CALCIUM 8.7 mg/dL (8.4-10.2); CARBON DIOXIDE 24 mmol/L (22-30); CHLORIDE 108 mmol/L (98-107); GLUCOSE 86 mg/dL (75-110); POTASSIUM 4.1 mmol/L (3.6-5.0)
[2017-01-06 05:26] LABS: ANION GAP 9 (5-19); SODIUM 140.6 mmol/L (137-145)
[2017-01-06] MEDS ORDERED: RINGERS SOLUTION,LACTATED 1,000 ML IV PRN (07:39)
[2017-01-06] MEDS ORDERED: LORAZEPAM INJ 2 MG/1 ML VIAL IV PRN (08:06)
--- NOTE | 2017-01-06 08:31 | PDOC PROGRESS REPORT ---
Subjective Progress Note for:: 01/06/17 Subjective:: Patient complains of not been able to sleep because she did not get her usual nerve pills. Stomach pain is better. ROS All organ systems reviewed and negative except as in subjective All laboratories and significant diagnostics have been reviewed Physical Exam Vital Signs: Temp Pulse Resp BP Pulse Ox 97.8 F 69 11 L 123/72 99 01/06/17 07:48 01/06/17 07:48 01/06/17 07:48 01/06/17 07:48 01/06/17 07:48 Intake & Output 01/05/17 01/06/17 01/07/17 06:59 06:59 06:59 Intake Total 1574 Output Total 1150 Balance 424 Weight 105.8 kg General appearance: PRESENT: no acute distress, cooperative, morbidly obese Head exam: PRESENT: atraumatic, normocephalic Eye exam: PRESENT: EOMI, PERRLA Ear exam: PRESENT: normal external ear exam Mouth exam: PRESENT: moist, neck supple Neck exam: PRESENT: full ROM, tenderness. ABSENT: JVD Respiratory exam: PRESENT: clear to auscultation lulu Cardiovascular exam: PRESENT: RRR. ABSENT: diastolic murmur, systolic murmur Vascular exam: PRESENT: normal capillary refill GI/Abdominal exam: PRESENT: distended, hypoactive bowel sounds, tenderness - In epigastric area Extremities exam: PRESENT: full ROM, +1 edema. ABSENT: clubbing Neurological exam: PRESENT: alert, oriented to person, oriented to place, oriented to time Psychiatric exam: PRESENT: anxious Results Laboratory Results: 01/06/17 04:49 01/06/17 04:49 01/05/17 01/06/17 01/06/17 22:34 04:49 04:49 WBC 4.1 4.2 RBC 2.52 L 2.88 L Hgb 7.5 L 8.6 L Hct 22.0 L 24.6 L MCV 87 85 MCH 29.8 29.8 MCHC 34.3 34.9 RDW 14.1 H 14.2 H Plt Count 150 147 L Sodium 140.6 Potassium 4.1 Chloride 108 H Carbon Dioxide 24 Anion Gap 9 BUN 15 Creatinine 1.00 Est GFR ( Amer) > 60 Est GFR (Non-Af Amer) 58 L Glucose 86 Calcium 8.7 01/06/17 04:49 NT-Pro-B Natriuret Pep 1470 H Impressions: Acute Abdomen Series 01/05/17 13:26 IMPRESSION: NO RADIOGRAPHIC EVIDENCE FOR ACUTE ABDOMINAL DISEASE. Assessment & Plan - Diagnosis (1) Bipolar disorder (manic depression) Qualifiers: Current bipolar episode type: hypomanic Is this a current diagnosis for this admission?: Yes Plan: Will resume outpatient medicine as able to tolerate p.o. Will order Ativan IV in the meantime for anxiety. (2) Anemia Qualifiers: Anemia type: other cause Other causes of anemia: acute posthemorrhagic Qualified Code(s): D62 - Acute posthemorrhagic anemia Is this a current diagnosis for this admission?: Yes (3) GI bleed Qualifiers: GI bleed type/associated pathology: unspecified gastrointestinal hemorrhage type Qualified Code(s): K92.2 - Gastrointestinal hemorrhage, unspecified Is this a current diagnosis for this admission?: Yes Plan: Likely due to peptic ulcer disease secondary to NSAIDs and SSRIs. Will continue with Protonix drip. Expected to go for EGD today. Appreciate GI input. (4) Atrial fibrillation Qualifiers: Atrial fibrillation type: paroxysmal Qualified Code(s): I48.0 - Paroxysmal atrial fibrillation Is this a current diagnosis for this admission?: Yes Plan: Stable from the standpoint of view. (5) CHF (congestive heart failure) Qualifiers: Congestive heart failure type: unspecified congestive heart failure type Is this a current diagnosis for this admission?: Yes Plan: Will order echocardiogram. Anticipate the place patient on lisinopril and beta- gerhard. Will keep patient on maintenance IV fluid and will start Lasix IV. - Time Time Spent with patient: 15-24 minutes Medications reviewed and adjusted accordingly: Yes Anticipated discharge: Home Within: within 48 hours - Inpatient Certification Based on my medical assessment, after consideration of the patient's comorbidities, presenting symptoms, or acuity I expect that the services needed warrant INPATIENT care.: Yes I certify that my determination is in accordance with my understanding of Medicare's requirements for reasonable and necessary INPATIENT services [42 CFR 412.3e].: Yes Medical Necessity: Significant Comorbidiites Make Outpatient Treatment Too Risky , Risk of Complication if Not Cared For in Hospital
[2017-01-06] MEDS: FUROSEMIDE INJ/PF 40 MG/4 ML SDV IV SCH ×2 (09:23→21:15)
[2017-01-06] MEDS ORDERED: DIPHENHYDRAMINE HCL 50 MG/ML VIAL ONE (09:43)
[2017-01-06] MEDS ORDERED: MIDAZOLAM 2 MG/2 ML INJ ONE (09:44)
[2017-01-06] MEDS ORDERED: FENTANYL CITRATE INJ/PF 100 MCG/2 ML AMPUL ONE (09:44)
[2017-01-06] MEDS ORDERED: ONDANSETRON HCL INJ/PF 4 MG/2 ML SDV ONE (09:44)
[2017-01-06] MEDS ORDERED: NALOXONE HCL INJ/PF 0.4 MG/1 ML SDV ONE (09:44)
[2017-01-06] MEDS ORDERED: EPINEPHRINE INJ 1 MG/10 ML DISP.SYRIN ONE (09:45)
[2017-01-06] MEDS ORDERED: FLUMAZENIL INJ 0.5 MG/5 ML VIAL ONE (09:45)
[2017-01-06] MEDS ORDERED: GLUCAGON,HUMAN RECOMB 1 MG INJ ONE (09:45)
--- NOTE | 2017-01-06 11:47 | Operative Report ---
Operative Report DATE OF SURGERY: 01/06/17 Operative Report: The risks benefits and alternatives of the procedure explained to the patient in detail and informed consent is obtained.A GIF Olympus video scope was inserted into the patient's mouth and hypopharynx ,the esophagus is identified intubated and insufflated, the scope was then advanced through the esophagus stomach and duodenum, retroflexion maneuver is done, the esophagus stomach and first and second portions of the duodenum examined PREOPERATIVE DIAGNOSIS: GI bleeding POSTOPERATIVE DIAGNOSIS: Clean base gastric ulcer status post biopsy. Gastritis status post biopsy rule out Helicobacter pylori OPERATION: EGD with biopsy SURGEON: MELISSA MONTEJO ANESTHESIA: Moderate Sedation - 1 mg of Versed, conscious sedation monitoring time 30 minutes. TISSUE REMOVED OR ALTERED: Gastric tissue obtained rule out malignancy, rule out Helicobacter pylori COMPLICATIONS: None. ESTIMATED BLOOD LOSS: None. INTRAOPERATIVE FINDINGS: As described above. PROCEDURE: Patient tolerated procedure well. No immediate postprocedure complications are noted. Patient sent back to her room in good condition. She can be moved out of the ICU. Can start clears. Await biopsies. PPI as noted Avoid NSAIDs Do not restart Eliquis until ulcer is healed
[2017-01-06] MEDS: LANSOPRAZOLE 30 MG TAB.RAP.DR PO SCH (16:39)
[2017-01-06] MEDS: DIVALPROEX SODIUM 250 MG TABLET.DR PO SCH (21:14)
[2017-01-06] MEDS: ROPINIROLE HCL 1 MG TABLET PO SCH (21:15)
[2017-01-06] MEDS ORDERED: TRAZODONE HCL 50 MG TABLET PO SCH (22:00)
[2017-01-06] MEDS ORDERED: (PENDING PHARMACY ID) (Ropinirole Hcl [Requip] 0.5 MG) PO SCH (22:00)
[2017-01-06] MEDS ORDERED: (PENDING PHARMACY ID) (Divalproex Sodium [Depakote] 500 MG) PO SCH (22:00)
[2017-01-06] MEDS ORDERED: (PENDING PHARMACY ID) (Trazodone Hcl [Desyrel] 100 MG) PO SCH (22:00)
[2017-01-06] MEDS ORDERED: TRAZODONE HCL 50 MG TABLET PO ONE (23:00)
[2017-01-07] MEDS: LANSOPRAZOLE 30 MG TAB.RAP.DR PO SCH (05:06)
[2017-01-07] MEDS: MORPHINE SULFATE 10 MG/ML INJ IV PRN (05:39)
[2017-01-07 06:10] LABS: ABSOLUTE EOSINOPHILS # (AUTO) 0.4 10^3/uL (0.0-0.6); ABSOLUTE MONOCYTES (AUTO) 0.7 10^3/uL (0.1-1.4); ABSOLUTE NEUT (AUTO) 2.7 10^3/uL (1.7-8.2); BASOPHILS % (AUTO) 0.6 % (0-2); EOSINOPHILS % (AUTO) 7.5 % (0-6); HEMATOCRIT 25.2 % (36.0-47.0); HGB HCT DIFFERENCE 1.8; LYMPHOCYTES % (AUTO) 20.4 % (13-45); MEAN CORPUSCULAR HEMOGLOBIN 30.1 pg (27.0-33.4); MEAN CORPUSCULAR HGB CONC 35.8 g/dL (32.0-36.0); MEAN CORPUSCULAR VOLUME 84 fl (80-97); MONOCYTES % (AUTO) 15.3 % (3-13); RED BLOOD COUNT 2.99 10^6/uL (3.72-5.28); RED CELL DISTRIBUTION WIDTH 14.4 % (11.5-14.0); SEGMENTED NEUTROPHILS % (AUTO) 56.2 % (42-78); WHITE BLOOD COUNT 4.8 10^3/uL (4.0-10.5)
[2017-01-07 06:29] LABS: ANION GAP 8 (5-19); BLOOD UREA NITROGEN 15 mg/dL (7-20); CALCIUM 8.2 mg/dL (8.4-10.2); CARBON DIOXIDE 31 mmol/L (22-30); CHLORIDE 104 mmol/L (98-107); CREATININE RESULT 1.01 mg/dL (0.52-1.25); GLUCOSE 81 mg/dL (75-110); MAGNESIUM 1.7 mg/dL (1.6-2.3); POTASSIUM 3.8 mmol/L (3.6-5.0); SODIUM 142.5 mmol/L (137-145)
[2017-01-07] MEDS ORDERED: LEVOTHYROXINE SODIUM 0.1 MG TABLET PO SCH (08:00)
[2017-01-07] MEDS ORDERED: (PENDING PHARMACY ID) (Levothyroxine Sodium [Synthroid] 125 MCG) PO SCH (08:00)
[2017-01-07] MEDS ORDERED: LEVOTHYROXINE SODIUM 0.025 MG TABLET PO SCH (08:00)
[2017-01-07 08:09] VITALS: BP 113/56
[2017-01-07] MEDS: DIVALPROEX SODIUM 250 MG TABLET.DR PO SCH (08:13)
[2017-01-07] MEDS: FUROSEMIDE INJ/PF 40 MG/4 ML SDV IV SCH (08:14)
--- NOTE | 2017-01-07 09:43 | XCELERA REPORT ---
[address] [address] Transthoracic Echocardiogram Report Name: KANDI GUTIERREZ Age: 51 yrs Gender: Female : 1965 Patient Status: Inpatient Patient Location: ICU^609^A Study Date: 01/06/2017 01:59 PM Height: 68 in Weight: 233 lb BSA: 2.2 m2 Procedure: A complete two-dimensional transthoracic echocardiogram was performed (2D, M-mode, spectral and color flow Doppler). The study was technically difficult with many images being suboptimal in quality. Reason For Study: CHF Ordering Physician: SAUL WILD Performed By: Hazel Mistry Interpretation Summary The study was technically difficult with many images being suboptimal in quality. The left ventricular ejection fraction is normal. The left ventricle is grossly normal size. Doppler measurements suggest pseudonormalized left ventricular relaxation, which is associated with grade II/IV or mild to moderate diastolic dysfunction Wall motion cannot be accurately commented on, but no definite regional wall motion abnormalities noted. The right ventricle is moderately dilated. Right ventricular function cannot be assessed due to poor image quality. The right atrium is moderately dilated. The left atrium is mildly dilated. There is a trace to mild amount of mitral regurgitation There is no aortic valve stenosis No aortic regurgitation is present. There is a mild amount of tricuspid regurgitation Right ventricular systolic pressure is estimated to be elevated at 40- 50mmHg. There is mild to moderate pulmonary hypertension by echo There is no pericardial effusion. MMode/2D Measurements & Calculations RVDd: 2.7 cm LVIDd: 5.3 cm FS: 36.2 % Ao root diam: 1.9 cm IVSd: 0.66 cm LVIDs: 3.4 cm EDV(Teich): 134.1 ml LVPWd: 0.62 cm ESV(Teich): 46.3 ml Ao root area: 2.8 cm2 EF(Teich): 65.5 % LA dimension: 4.0 cm Doppler Measurements & Calculations MV E max mita: MV P1/2t max mita: Ao V2 max: LV V1 max P.7 cm/sec 125.0 cm/sec 150.7 cm/sec 4.8 mmHg MV A max mita: MV P1/2t: 57.2 msec Ao max PG: LV V1 max: 55.4 cm/sec 9.1 mmHg 109.1 cm/sec MV E/A: 2.3 MVA(P1/2t): 3.8 cm2 MV dec slope: 640.0 cm/sec2 PA V2 max: PI end-d mita: TR max mita: 118.5 cm/sec 86.9 cm/sec 304.1 cm/sec PA max PG: TR max P.6 mmHg 37.0 mmHg Left Ventricle The left ventricle is grossly normal size. The left ventricular ejection fraction is normal. Doppler measurements suggest pseudonormalized left ventricular relaxation, which is associated with grade II/IV or mild to moderate diastolic dysfunction. Wall motion cannot be accurately commented on, but no definite regional wall motion abnormalities noted. Right Ventricle The right ventricle is moderately dilated. Right ventricular function cannot be assessed due to poor image quality. Atria The right atrium is moderately dilated. The left atrium is mildly dilated. Interarterial septum not well visualized and not well dopplered. Cannot comment on ASD/PFO presence. Mitral Valve The mitral valve leaflets are sclerotic, but show no functional abnormalities. There is no mitral valve stenosis. There is a trace to mild amount of mitral regurgitation. Aortic Valve The aortic valve is not well visualized secondary to technical limitations. There is no aortic valve stenosis. No aortic regurgitation is present. Tricuspid Valve The tricuspid valve is not well visualized secondary to technical limitations. There is no tricuspid stenosis. There is a mild amount of tricuspid regurgitation. Right ventricular systolic pressure is estimated to be elevated at 40-50mmHg. There is mild to moderate pulmonary hypertension by echo. Pulmonic Valve The pulmonic valve is not well visualized. Great Vessels The aortic root is not well visualized but is probably normal size. The inferior vena cava appeared normal and decreased > 50% with respiration (RAP 5-10 mmHg). Effusions There is no pericardial effusion. : SAUL WILD > Valerie Saenz
[2017-01-07] MEDS ORDERED: (PENDING PHARMACY ID) (Escitalopram Oxalate [Lexapro] 40 MG) PO SCH (10:00)
[2017-01-07] MEDS ORDERED: ESCITALOPRAM OXALATE 10 MG TABLET PO SCH (10:00)
[2017-01-07] MEDS ORDERED: METOPROLOL SUCCINATE 25 MG TAB.SR.24H PO SCH (10:00)
[2017-01-07] MEDS ORDERED: LISINOPRIL 5 MG TABLET PO SCH (10:00)
[2017-01-07] MEDS: ROPINIROLE HCL 1 MG TABLET PO SCH (11:41)
--- NOTE | 2017-01-07 12:03 | PDOC PROGRESS REPORT ---
Subjective Progress Note for:: 01/07/17 Subjective:: Patient had undergone upper endoscopy yesterday and tolerated the procedure well. Biopsies do not show any malignancy. She does have an ulcer in the antrum. It is likely due to NSAID use. She will need to discontinue any anticoagulation until we have confirmed healing. Alternative medicines need to be considered if she needs anticoagulation possibly low-dose aspirin Biopsies are negative She can resume her diet Outpatient follow-up to document healing Physical Exam Vital Signs: Temp Pulse Resp BP Pulse Ox 98.9 F 67 19 113/56 L 94 01/07/17 11:13 01/07/17 11:13 01/07/17 11:13 01/07/17 11:13 01/07/17 11:13 Intake & Output 01/06/17 01/07/17 01/08/17 06:59 06:59 06:59 Intake Total 1574 2285 Output Total 1150 3530 Balance 424 -1245 Weight 105.8 kg 101.9 kg General appearance: PRESENT: no acute distress, well-developed, well-nourished Head exam: PRESENT: atraumatic, normocephalic Eye exam: PRESENT: EOMI, PERRLA. ABSENT: nystagmus, periorbital swelling, scleral icterus Mouth exam: PRESENT: moist Throat exam: ABSENT: tonsillar exudate, tonsillogmegaly Neck exam: ABSENT: meningismus, tenderness, thyromegaly Respiratory exam: PRESENT: symmetrical, unlabored. ABSENT: tachypnea, wheezes Cardiovascular exam: PRESENT: RRR, +S1, +S2 GI/Abdominal exam: PRESENT: soft. ABSENT: rebound, rigid, tenderness Extremities exam: ABSENT: joint swelling Neurological exam: PRESENT: oriented to time, oriented to situation, reflexes normal, CN II-XII grossly intact Psychiatric exam: PRESENT: appropriate affect Skin exam: PRESENT: normal color. ABSENT: mottled, petechiae, urticaria, vesicles Results Laboratory Results: 01/07/17 05:24 01/07/17 05:24 01/07/17 01/07/17 05:24 05:24 WBC 4.8 RBC 2.99 L Hgb 9.0 L Hct 25.2 L MCV 84 MCH 30.1 MCHC 35.8 RDW 14.4 H Plt Count 180 Seg Neutrophils % 56.2 Lymphocytes % 20.4 Monocytes % 15.3 H Eosinophils % 7.5 H Basophils % 0.6 Absolute Neutrophils 2.7 Absolute Lymphocytes 1.0 Absolute Monocytes 0.7 Absolute Eosinophils 0.4 Absolute Basophils 0.0 Sodium 142.5 Potassium 3.8 Chloride 104 Carbon Dioxide 31 H Anion Gap 8 BUN 15 Creatinine 1.01 Est GFR ( Amer) > 60 Est GFR (Non-Af Amer) 58 L Glucose 81 Calcium 8.2 L Magnesium 1.7 01/06/17 04:49 NT-Pro-B Natriuret Pep 1470 H Impressions: Acute Abdomen Series 01/05/17 13:26 IMPRESSION: NO RADIOGRAPHIC EVIDENCE FOR ACUTE ABDOMINAL DISEASE. Assessment & Plan - Diagnosis (1) GI bleed Qualifiers: GI bleed type/associated pathology: unspecified gastrointestinal hemorrhage type Qualified Code(s): K92.2 - Gastrointestinal hemorrhage, unspecified Is this a current diagnosis for this admission?: Yes (2) Peptic ulcer Plan: Also noted in the stomach.. Likely is due to NSAID use. The bleed was precipitated probably by use of anticoagulation. Her hemoglobin is stable. PPI should be started. Transfuse as needed. If replete may need surgical evaluation. Continue diet. Hold off on Eliquis until we can document healing of the ulcer - Time Time Spent with patient: 15-24 minutes
--- NOTE | 2017-01-07 13:32 | PDOC DISCHARGE SUMMARY ---
General - Admit/Disc Date/PCP Admission Date/Primary Care Provider: 01/05/17 14:43 SELINA REILLY Discharge Date: 01/07/17 - Discharge Diagnosis (1) Bipolar disorder (manic depression) Is this a current diagnosis for this admission?: Yes (2) Anemia Is this a current diagnosis for this admission?: Yes (3) GI bleed Is this a current diagnosis for this admission?: Yes (4) Atrial fibrillation Is this a current diagnosis for this admission?: Yes (5) CHF (congestive heart failure) Is this a current diagnosis for this admission?: Yes (6) Pulmonary hypertension Is this a current diagnosis for this admission?: Yes (7) Diastolic dysfunction with acute on chronic heart failure Is this a current diagnosis for this admission?: Yes - Additional Information Resuscitation Status: Full Code Home Medications: Divalproex Sodium [Depakote] 500 mg PO Q12 01/05/17 Escitalopram Oxalate [Lexapro] 40 mg PO DAILY 01/05/17 Levothyroxine Sodium [Synthroid] 125 mcg PO QAM 01/05/17 Ropinirole HCl [Requip] 0.5 mg PO Q12 01/05/17 Trazodone HCl [Desyrel] 100 mg PO DAILY 01/05/17 Furosemide [Lasix 20 mg Tablet] 20 mg PO QAM #30 tablet 01/07/17 Gabapentin [Neurontin 300 mg Capsule] 300 mg PO QHS #30 cap 01/07/17 Lisinopril [Prinivil 5 mg Tablet] 2.5 mg PO DAILY #30 tablet 01/07/17 Metoprolol Succinate [Toprol Xl 25 mg Tab.sr] 25 mg PO DAILY #30 tab.sr.24h 12/14 Pantoprazole Sodium [Protonix] 40 mg PO BID #60 tablet. 01/07/17 History of Present Illness History of Present Illness: KANDI GUTIERREZ is a 51 year old female presented to the emergency room complaining of stomach pain going all the way to her back which had worsened since over the course of one day. Patient stated that she had been having pain off and on for one 1 year. However recently she had been having weakness, dizziness and nausea and she went to see her primary care provider at the urgent care. Blood work was obtained yesterday and then she was called in on the day of evaluation and told her hemoglobin was very low and that she needed to go to emergency room. Patient complained of passing black tarry stool last week. She stopped taking Eliquis (she was placed on these medication due to a prior history of atrial fibrillation secondary to ASD). She took herself off as she was anticipating to undergo surgery for carpal tunnel syndrome. She also complained of easy bruising while on this medication. She suffers from bipolar disorder and takes Lexapro and Depakote. She has been treating the pain with Motrin and Advil. When evaluated in the emergency room hemoglobin was still low and the hospitalist service was contacted for further management. Hospital Course Hospital Course: .Patient was admitted under the hospitalist service to ICU. She was kept n.p.o. and on Protonix drip. She required total of 2 units of packed red blood cells. She was evaluated by and underwent EGD on 1108 which demonstrated an old antral ulcer. Patient was then transitioned to oral PPI and diet was advanced. Her pain had resolved. BNP was obtained and was elevated. Echocardiogram demonstrated grade 2 diastolic dysfunction and mild to moderate pulmonary hypertension. EF was not mentioned in echocardiogram. She has been advised to follow-up with her nutrition consultant. She was placed on Lasix , lisinopril and metoprolol at the time of discharge. Patient had also been recommended to follow-up with local PCP and made aware she may need to be evaluated for sleep apnea. She has been advised that she must stop all nonsteroidals like Mobic, Advil, Naprosyn or similar products. She has also made aware that most not restart Eliquis. She is to follow-up with Dr. Zelaya or the bait maker of her choice since she will need to be rescoped to follow-up resolution of ulcer. Also need to follow-up results of biopsy obtained while she underwent EGD. As far as pain management we added gabapentin at bedtime. Since patient has remained stable and had achieved maximum benefit of hospitalization stay prompted to discharge Physical Exam Vital Signs: Temp Pulse Resp BP Pulse Ox 98.9 F 67 19 113/56 L 94 01/07/17 07:24 01/07/17 07:24 01/07/17 07:24 01/07/17 07:24 01/07/17 07:24 Intake & Output 01/06/17 01/07/17 01/08/17 06:59 06:59 06:59 Intake Total 1574 2285 Output Total 1150 3530 Balance 424 -1245 Weight 105.8 kg 101.9 kg General appearance: PRESENT: no acute distress, cooperative Head exam: PRESENT: atraumatic, normocephalic Eye exam: PRESENT: EOMI, PERRLA Ear exam: PRESENT: normal external ear exam Mouth exam: PRESENT: moist, neck supple Neck exam: PRESENT: full ROM, tenderness. ABSENT: JVD, thyromegaly Respiratory exam: PRESENT: clear to auscultation lulu Cardiovascular exam: ABSENT: diastolic murmur, systolic murmur - IRRR Vascular exam: PRESENT: normal capillary refill GI/Abdominal exam: PRESENT: normal bowel sounds, soft. ABSENT: tenderness Extremities exam: PRESENT: full ROM, +1 edema Musculoskeletal exam: PRESENT: full ROM Neurological exam: PRESENT: alert, oriented to person, oriented to place, oriented to time Psychiatric exam: PRESENT: appropriate affect, normal mood Results Laboratory Results: 01/07/17 05:24 01/07/17 05:24 01/07/17 01/07/17 05:24 05:24 WBC 4.8 RBC 2.99 L Hgb 9.0 L Hct 25.2 L MCV 84 MCH 30.1 MCHC 35.8 RDW 14.4 H Plt Count 180 Seg Neutrophils % 56.2 Lymphocytes % 20.4 Monocytes % 15.3 H Eosinophils % 7.5 H Basophils % 0.6 Absolute Neutrophils 2.7 Absolute Lymphocytes 1.0 Absolute Monocytes 0.7 Absolute Eosinophils 0.4 Absolute Basophils 0.0 Sodium 142.5 Potassium 3.8 Chloride 104 Carbon Dioxide 31 H Anion Gap 8 BUN 15 Creatinine 1.01 Est GFR ( Amer) > 60 Est GFR (Non-Af Amer) 58 L Glucose 81 Calcium 8.2 L Magnesium 1.7 01/06/17 04:49 NT-Pro-B Natriuret Pep 1470 H Impressions: Acute Abdomen Series 01/05/17 13:26 IMPRESSION: NO RADIOGRAPHIC EVIDENCE FOR ACUTE ABDOMINAL DISEASE.
== END 2017-01-07 12:07 | disposition home or self-care (01) | DRG 377 ==
LOC: ER 11:02 → EH 14:43 → ICU 20:49 → 4N 01-06 22:35
PROVIDERS: ADMIT Family Medicine; ATTEND Family Medicine
PROC: 30233N1 Transfusion of Nonautologous Red Blood Cells into Peripheral Vein, Percutaneous Approach (ICD-10-PCS; principal; 2017-01-05)
PROC: 0DD68ZX Extraction of Stomach, Via Natural or Artificial Opening Endoscopic, Diagnostic (ICD-10-PCS; 2017-01-06)
DX: K25.4 Chronic or unspecified gastric ulcer with hemorrhage (principal); I50.33 Acute on chronic diastolic (congestive) heart failure; D62 Acute posthemorrhagic anemia; F31.0 Bipolar disorder, current episode hypomanic; T39.395A Adverse effect of other nonsteroidal anti-inflammatory drugs [NSAID], initial encounter; I48.2 Chronic atrial fibrillation; K29.70 Gastritis, unspecified, without bleeding; I27.20 Pulmonary hypertension, unspecified; I11.0 Hypertensive heart disease with heart failure; F41.8 Other specified anxiety disorders; E66.01 Morbid (severe) obesity due to excess calories; Z95.0 Presence of cardiac pacemaker; Z68.34 Body mass index [BMI] 34.0-34.9, adult; Z79.01 Long term (current) use of anticoagulants; Z79.899 Other long term (current) drug therapy
CPT/HCPCS: 36415; 36430; 43239; 74022; 80048; 80053; 81001; 82272; 83690; 83735; 83880; 85025; 85027; 85610; 85730; 86850; 86900; 86901; 86920; 88305; 88342; 93306; 96360; 99284; J0171; J1200; J1610; J1940; J2060; J2250; J2270; J2310; J2405; J3010; J3490; J7030; J7120; P9016; S0164

== ENCOUNTER → 2017-04-13 | Outpatient (CLI) | payer MEDICARE, MEDICAID ==
[2017-04-13 10:45] LABS: ABSOLUTE EOSINOPHILS # (AUTO) 0.1 10^3/uL (0.0-0.6); ABSOLUTE MONOCYTES (AUTO) 0.5 10^3/uL (0.1-1.4); ABSOLUTE NEUT (AUTO) 3.2 10^3/uL (1.7-8.2); BASOPHILS % (AUTO) 0.6 % (0-2); EOSINOPHILS % (AUTO) 2.4 % (0-6); HEMATOCRIT 30.4 % (36.0-47.0); HEMOGLOBIN 10.2 g/dL (12.0-15.5); LYMPHOCYTES % (AUTO) 20.8 % (13-45); MEAN CORPUSCULAR HGB CONC 33.4 g/dL (32.0-36.0); MEAN CORPUSCULAR VOLUME 78 fl (80-97); MONOCYTES % (AUTO) 10.4 % (3-13); PLATELET COUNT 136 10^3/uL (150-450); RED CELL DISTRIBUTION WIDTH 16.9 % (11.5-14.0); SEGMENTED NEUTROPHILS % (AUTO) 65.8 % (42-78); TOTAL CELLS COUNTED % (AUTO) 100 %; WHITE BLOOD COUNT 4.8 10^3/uL (4.0-10.5)
[2017-04-13 10:50] LABS: INTERNATIONAL RATION (INR) 0.94; PROTHROMBIN TIME 13.2 SEC (11.4-15.4)
[2017-04-13 11:17] LABS: ANION GAP 8 (5-19); BLOOD UREA NITROGEN 18 mg/dL (7-20); CALCIUM 9.4 mg/dL (8.4-10.2); CARBON DIOXIDE 28 mmol/L (22-30); CHLORIDE 103 mmol/L (98-107); GLUCOSE 90 mg/dL (75-110); POTASSIUM 4.8 mmol/L (3.6-5.0)
--- NOTE | 2017-04-13 11:38 | RADIOLOGY REPORT (SQ) ---
EXAM DESCRIPTION: CHEST PA/LATERAL COMPLETED DATE/TIME: 04/13/2017 10:26 am REASON FOR STUDY: PRE OP COMPARISON: 04/20/2016. TECHNIQUE: Frontal and lateral radiographic views of the chest acquired. NUMBER OF VIEWS: Two view. LIMITATIONS: None. FINDINGS: LUNGS AND PLEURA: No opacities, masses or pneumothorax. No pleural effusion. MEDIASTINUM AND HILAR STRUCTURES: No masses or contour abnormalities. HEART AND VASCULAR STRUCTURES: Heart normal size. No evidence for failure. BONES: No acute findings. HARDWARE: Left transvenous pacer, leads grossly intact. OTHER: No other significant finding. IMPRESSION: NO SIGNIFICANT RADIOGRAPHIC FINDING IN THE CHEST. TECHNICAL DOCUMENTATION: JOB ID: [id number] [employer]- All Rights Reserved
--- NOTE | 2017-04-14 08:50 | EKG REPORT ---
SEVERITY:- ABNORMAL ECG - ATRIAL-PACED COMPLEXES : Confirmed by: Andrzej Stewart 14-Apr-2017 08:49:13
== END ==
LOC: OD 09:26
PROVIDERS: ATTEND Orthopaedic Surgery
DX: Z01.818 Encounter for other preprocedural examination (principal); I48.91 Unspecified atrial fibrillation
CPT/HCPCS: 36415; 71046; 80048; 85025; 85610; 93005; 93010

== ENCOUNTER 2017-09-25 12:12 | Emergency (ER) | payer MEDICARE, OTHER, MEDICAID ==
[2017-09-25] MEDS ORDERED: ACETAMINOPHEN 325 MG TABLET PO ONE (13:55)
--- NOTE | 2017-09-25 14:02 | ER Document Report ---
ED Extremity Problem, Lower - General Chief Complaint: Knee Pain Stated Complaint: LEFT KNEE PAIN Time Seen by Provider: 09/25/17 13:08 Mode of Arrival: Wheelchair Information source: Patient Notes: 52-year-old female presents to ED for complaint of pain and swelling to her left knee. She states she has sharp surging pain in the back of the knee started . She states she had injections in both knees 2 weeks ago for arthritis to the knees. She states her orthopedic doctor [facility] [address]. She states she also has a pacemaker after having a septum repair while incarcerated. She states she is on Eliquis. States she has arthritis and has had a carpal tunnel surgery in the past. TRAVEL OUTSIDE OF THE [place] IN LAST 30 DAYS: No - HPI Patient complains to provider of: Pain, Swelling Location: Knee - Left Occurred: Other - Where: Home Onset/Duration: Gradual - Quality of pain: Sharp - Surgeon Severity: Severe Pain Level: 5 Recent injury: No Associated symptoms: Painful ambulation Exacerbated by: Hanging down, Movement, Walking Relieved by: Nothing - Related Data Allergies/Adverse Reactions: carbamazepine [From Tegretol] Allergy (Verified 09/25/17 12:13) Past Medical History - General Information source: Patient - Social History Smoking Status: Former Smoker Cigarette use (# per day): No - Uses vapor cigarette Chew tobacco use (# tins/day): No Smoking Education Provided: No Frequency of alcohol use: None Drug Abuse: None Lives with: Family Family History: None Patient has suicidal ideation: No Patient has homicidal ideation: No - Past Medical History Cardiac Medical History: Reports: Hx Atrial Fibrillation, Hx Hypertension, Other - Pacemaker Pulmonary Medical History: Reports: Hx Sleep Apnea EENT Medical History: Reports: None Neurological Medical History: Reports: None Endocrine Medical History: Reports: Hx Hypothyroidism Renal/ Medical History: Reports: None Malignancy Medical History: Reports: Other - Anemia GI Medical History: Reports: None Musculoskeletal Medical History: Reports Hx Arthritis Skin Medical History: Reports None Psychiatric Medical History: Reports: Hx Anxiety, Hx Bipolar Disorder, Hx Depression Traumatic Medical History: Reports: None Infectious Medical History: Reports: None Past Surgical History: Reports: Hx Cardiac Surgery - x2: ASD patch placed in 1968, repaired/replaced 2014, Hx Pacemaker - 2015, Other - ASD repair - Immunizations Hx Diphtheria, Pertussis, Tetanus Vaccination: No Review of Systems - Review of Systems Constitutional: No symptoms reported EENT: No symptoms reported Cardiovascular: No symptoms reported Respiratory: No symptoms reported Gastrointestinal: No symptoms reported Genitourinary: No symptoms reported Female Genitourinary: No symptoms reported Musculoskeletal: Joint pain, Joint swelling Skin: No symptoms reported Hematologic/Lymphatic: No symptoms reported Neurological/Psychological: No symptoms reported -: Yes All other systems reviewed and negative Physical Exam - Vital signs Vitals: Temp Pulse Resp BP Pulse Ox 98.8 F 59 L 18 131/62 H 98 09/25/17 12:25 09/25/17 12:25 09/25/17 12:25 09/25/17 12:25 09/25/17 12:25 Interpretation: Normal - General General appearance: Appears well, Alert - HEENT Head: Normocephalic, Atraumatic Eyes: Normal Pupils: PERRL - Respiratory Respiratory status: No respiratory distress Chest status: Nontender Breath sounds: Normal Chest palpation: Normal - Cardiovascular Rhythm: Regular Heart sounds: Normal auscultation Murmur: No - Abdominal Inspection: Normal Distension: No distension Bowel sounds: Normal Tenderness: Nontender Organomegaly: No organomegaly - Back Back: Normal, Nontender - Extremities General upper extremity: Normal inspection, Nontender, Normal color, Normal ROM , Normal temperature General lower extremity: Normal temperature. No: Parag's sign Knee: Tender, Joint effusion, Pain with ROM, Patellar tendon intact, Popliteal fossa tender, Unable to bear weight. No: Abrasion, Deformity, Dislocation, Drawer's test instability, Ecchymosis, Instability, Laceration, Laxity with valgus stress, Laxity with varus stress, Tender joint line - Neurological Neuro grossly intact: Yes Cognition: Normal Orientation: AAOx4 Oakley Coma Scale Eye Opening: Spontaneous Josephine Coma Scale Verbal: Oriented Oakley Coma Scale Motor: Obeys Commands Oakley Coma Scale Total: 15 Speech: Normal Motor strength normal: LUE, RUE, LLE, RLE Sensory: Normal - Psychological Associated symptoms: Normal affect, Normal mood - Skin Skin Temperature: Warm Skin Moisture: Dry Skin Color: Normal Course - Re-evaluation Re-evalutation: 09/25/17 15:36 Patient's x-ray to her left knee as well as the Doppler were negative. Patient has been discharged home with an Abhilash wrap to the knee with instructions to follow-up with her hearing instrument specialist by telephone tomorrow to schedule follow-up appointment. Patient was given instructions on elevation ice and exercise. Patient is able to verbalize understanding and agreement with treatment plan. - Vital Signs Vital signs: Temp Pulse Resp BP Pulse Ox 97.8 F 63 18 117/67 98 09/25/17 15:39 09/25/17 15:39 09/25/17 15:39 09/25/17 15:39 09/25/17 15:39 - Diagnostic Test Radiology reviewed: Image reviewed, Reports reviewed Procedures - Immobilization Left Knee Time completed: 15:36 Immobilizer type: Abhilash wrap Performed by: PCT Post-Proc Neuro Vasc Exam: Normal Alignment checked and good: Yes Discharge - Discharge Clinical Impression: Left knee pain Qualifiers: Chronicity: unspecified Qualified Code(s): M25.562 - Pain in left knee Condition: Stable Disposition: HOME, SELF-CARE Additional Instructions: You is seen today for knee pain. Your x-ray is negative. If venous Doppler is negative. You will need to follow-up with the orthopedic doctor by telephone tomorrow to schedule follow-up for your knee pain. ABHILASH WRAP: A compression dressing (abhilash wrap) has been placed. This helps hold the area still. It limits swelling and internal bleeding. The wrap should be comfortably snug -- not tight. You should feel a sense of pressure, but not severe pain under the wrap. Unless the physician tells you otherwise, you can adjust the wrap for comfort. If the wrap causes symptoms suggesting it's too tight -- uncomfortable pressure, swelling or discoloration beyond the wrap, numbness, or severe pain - - you must loosen the wrap. If these symptoms don't resolve promptly, return for re-evaluation. USE OF CRUTCHES: The doctor has recommended that you not bear weight at this time. You will need to use crutches. Adjust the crutches so the tops come to about two inches under the armpit while you are standing upright. Use your hands -- not your armpits -- to support your weight. To get into a chair, support yourself with one crutch on the injured side. Hold the chair with the other hand, then lower yourself while putting all your weight on the good leg. Going up stairs is `good leg up, step up, then bring up crutches and bad leg.' Down stairs is `bad leg and crutches down, then bring good leg down.' If you develop numbness or swelling in an arm or hand, you are using the crutches incorrectly. Return if you are having any problems with the crutches. ICE & ELEVATION: Apply ice packs frequently against the painful area. Many different schedules are recommended, such as "20 minutes on, 20 minutes off" or "one hour ice, two hours rest." If you need to work, you may need to go longer between ice treatments. You should plan to have the area ice packed AT LEAST one- fourth of the time. The ice should be applied over the wrap, tape, or splint, or over a layer of cloth -- not directly against the skin. Some ice bags have a built-in cloth and can be put directly on the skin. Your injured part should be elevated as much as possible over the next 48 hours. Try to keep the injury above the level of the heart. Avoid use of the injured area. Elevation and rest will decrease the swelling. Acetaminophen Acetaminophen may be taken for pain relief or fever control. It's much safer than aspirin, offering a wider range of "safe" dosages. It is safe during . Some brand names are Tylenol, Panadol, Datril, Anacin 3, Tempra, and Liquiprin. Acetaminophen can be repeated every four hours. The following are maximum recommended dosages: WEIGHT Dose Drops Elixir Chewable( 80mg) (LBS.) drprs=droppers tsp=teaspoon 6 40 mg .4 ml (1/2) 6-11 80 mg .8 ml (full) 1/2 tsp 1 tab 12-16 120 mg 1 1/2 drprs 3/4 tsp 1 1/2 tabs 17-23 160 mg 2 drprs 1 tsp 2 tabs 24-30 240 mg 3 drprs 1 1/2 tsp 3 tabs 30-35 320 mg 2 tsp 4 tabs 36-41 360 mg 2 1/4 tsp 4 1 /2 tabs 42-47 400 mg 2 1/2 tsp 5 tabs 48-53 480 mg 3 tsp 6 tabs 54-59 520 mg 3 1/4 tsp 6 1 /2 tabs 60-64 560 mg 3 1/2 tsp 7 tabs 65-70 600 mg 3 3/4 tsp 7 1 /2 tabs 71-76 640 mg 4 tsp 8 tabs 77-82 720 mg 4 1/2 tsp 9 tabs 83-88 800 mg 5 tsp 10 tabs >89 pounds or adults 650 mg to 900 mg Acetaminophen can be repeated every four hours. Maximum daily dose not to exceed 4000 mg. These maximum recommended dosages are slightly higher than the dosages written on the product container, but these dosages are very safe and well below the toxic dosage for acetaminophen. Please call your orthopedic doctor first thing in the morning and schedule a follow-up visit note that you have had this increased pain since he did the injections in your knee. FOLLOW-UP CARE: If you have been referred to a physician for follow-up care, call the physician s office for an appointment as you were instructed or within the next two days. If you experience worsening or a significant change in your symptoms, notify the physician immediately or return to the Emergency Department at any time for re-evaluation. Forms: Elevated Blood Pressure Referrals: LYDIA MARTIN MD [ACTIVE STAFF] - Follow up as needed
--- NOTE | 2017-09-25 14:14 | RADIOLOGY REPORT (SQ) ---
EXAM DESCRIPTION: KNEE LEFT 4 VIEW COMPLETED DATE/TIME: 09/25/2017 2:05 pm REASON FOR STUDY: pain and swelling COMPARISON: None. NUMBER OF VIEWS: Four views left knee. LIMITATIONS: None. FINDINGS: Mild degenerative spurring throughout the knee. Small joint effusion. No fracture or bon e lesion. OTHER: No other significant finding. IMPRESSION: 1. DJD. 2. Small effusion. TECHNICAL DOCUMENTATION: JOB ID: [id number] Reading location - IP/workstation name: [email or web address]
--- NOTE | 2017-09-25 15:35 | RADIOLOGY REPORT (SQ) ---
EXAM DESCRIPTION: VENOUS UNILATERAL LOWER COMPLETED DATE/TIME: 09/25/2017 3:27 pm REASON FOR STUDY: pain and swelling behind left knee recent COMPARISON: None. TECHNIQUE: Dynamic and static ramos scale and color images acquired of the left leg venous system. Se lected spectral images acquired with additional compression and augmentation maneuvers. The contralat eral common femoral vein and saphenofemoral junction were also imaged. Images stored on PACS. LIMITATIONS: None. FINDINGS: COMMON FEMORAL: Normal phasicity, compression and augmentation. No visualized echogenic ma terial on ramos scale. No defects on color images. FEMORAL: Normal compression and augmentation. No visualized echogenic material on ramos scale. No defe cts on color images. POPLITEAL: Normal compression, augmentation. No visualized echogenic material on ramos scale. No defec ts on color images. CALF VESSELS: Normal compression, augmentation. No visualized echogenic material on ramos scale. No de fects on color images. GSV and SSV: Normal compression, augmentation. No visualized echogenic material on ramos scale. No def ects on color images. ANY DEEP VENOUS INSUFFICIENCY: Not evaluated. ANY EVIDENCE OF POPLITEAL CYST: No. OTHER: No other significant finding. CONTRALATERAL COMMON FEMORAL VEIN AND SAPHENOFEMORAL JUNCTION: Normal phasicity, compression and augmentation. No visualized echogenic material on ramos scale. No de fects on color images. IMPRESSION: NO EVIDENCE DVT OR SVT IN THE LEFT LEG. TECHNICAL DOCUMENTATION: JOB ID: [id number] [employer]- All Rights Reserved Reading location - IP/workstation name: [email or web address]
[2017-09-25 15:41] VITALS: BP 117/67
== END 2017-09-25 15:45 | disposition home or self-care (01) ==
LOC: ER 12:12
DX: M17.0 Bilateral primary osteoarthritis of knee (principal); M25.562 Pain in left knee; M25.462 Effusion, left knee; I48.91 Unspecified atrial fibrillation; I10 Essential (primary) hypertension; Z98.890 Other specified postprocedural states; Z95.810 Presence of automatic (implantable) cardiac defibrillator; Z79.01 Long term (current) use of anticoagulants; Z88.6 Allergy status to analgesic agent; Z72.0 Tobacco use
CPT/HCPCS: 99283; 93971; 73564; A9270

== ENCOUNTER 2020-01-13 06:35 | Emergency (ER) | payer MEDICARE, OTHER, MEDICAID ==
--- NOTE | 2020-01-13 07:56 | RADIOLOGY REPORT (SQ) ---
EXAM DESCRIPTION: CHEST SINGLE VIEW IMAGES COMPLETED DATE/TIME: 01/13/2020 7:40 am REASON FOR STUDY: chest pain, sob, productive cough COMPARISON: Two-view chest 04/13/2017 AP chest 04/20/2016 EXAM PARAMETERS: NUMBER OF VIEWS: One view. TECHNIQUE: Single frontal radiographic view of the chest acquired. RADIATION DOSE: NA LIMITATIONS: None. FINDINGS: LUNGS AND PLEURA: No opacities, masses or pneumothorax. No pleural effusion. MEDIASTINUM AND HILAR STRUCTURES: No masses. Contour normal. HEART AND VASCULAR STRUCTURES: Old sternotomy. No cardiomegaly BONES: No acute findings. HARDWARE: Left-sided pacemaker unchanged OTHER: No other significant finding. IMPRESSION: NO ACUTE RADIOGRAPHIC FINDING IN THE CHEST. TECHNICAL DOCUMENTATION: JOB ID: [id number] [email or web address]- All Rights Reserved Reading location - IP/workstation name: [email or web address]
[2020-01-13] MEDS ORDERED: NORMAL SALINE 1000 ML 1,000 ML IV ONE (08:04)
[2020-01-13 08:23] LABS: ABSOLUTE EOSINOPHILS # (AUTO) 0.3 10^3/uL (0.0-0.6); ABSOLUTE LYMPHOCYTES (AUTO) 0.9 10^3/uL (0.5-4.7); ABSOLUTE MONOCYTES (AUTO) 0.5 10^3/uL (0.1-1.4); ABSOLUTE NEUT (AUTO) 5.3 10^3/uL (1.7-8.2); BASOPHILS % (AUTO) 0.4 % (0-2); EOSINOPHILS % (AUTO) 4.5 % (0-6); HEMATOCRIT 38.5 % (36.0-47.0); HEMOGLOBIN 12.9 g/dL (12.0-15.5); LYMPHOCYTES % (AUTO) 12.6 % (13-45); MEAN CORPUSCULAR HEMOGLOBIN 29.5 pg (27.0-33.4); MEAN CORPUSCULAR HGB CONC 33.6 g/dL (32.0-36.0); MEAN CORPUSCULAR VOLUME 88 fl (80-97); MONOCYTES % (AUTO) 7.5 % (3-13); PLATELET COUNT 148 10^3/uL (150-450); RED BLOOD COUNT 4.38 10^6/uL (3.72-5.28); RED CELL DISTRIBUTION WIDTH 13.8 % (11.5-14.0); TOTAL CELLS COUNTED % (AUTO) 100 %
[2020-01-13 08:36] LABS: ALBUMIN 4.2 g/dL (3.5-5.0); ALKALINE PHOSPHATASE 81 U/L (38-126); ANION GAP 7 (5-19); ASPARTATE AMINO TRANSFERASE 26 U/L (14-36); BILIRUBIN,DIRECT 0.1 mg/dL (0.0-0.4); BILIRUBIN,TOTAL 0.5 mg/dL (0.2-1.3); BLOOD UREA NITROGEN 12 mg/dL (7-20); CALCIUM 9.7 mg/dL (8.4-10.2); CARBON DIOXIDE 30 mmol/L (22-30); CHLORIDE 100 mmol/L (98-107); CREATINE KINASE 41 U/L (30-135); GLUCOSE 95 mg/dL (75-110); POTASSIUM 4.8 mmol/L (3.6-5.0); TOTAL PROTEIN 6.7 g/dL (6.3-8.2)
[2020-01-13 08:48] LABS: CREATINE KINASE MB 0.78 ng/mL (<4.55)
[2020-01-13 08:49] LABS: TROPONIN I < 0.012 ng/mL
--- NOTE | 2020-01-13 08:58 | EKG REPORT ---
SEVERITY:- ABNORMAL ECG - ATRIAL PACED RHYTHM : Confirmed by: Andrzej Stewart 13-Jan-2020 08:58:13
[2020-01-13] MEDS ORDERED: METHYLPREDNISOLONE INJ 125 MG/2 ML SDV IV ONE (11:06)
[2020-01-13] MEDS ORDERED: IPRATROPIUM/ALBUTEROL 0.5-2.5 MG/3 ML AMPUL NEB ONE (11:07)
[2020-01-13] MEDS: MAGNESIUM SULFATE/D5W 1 GM/100 ML RTUPB IV SCH ×2 (11:50→12:54)
[2020-01-13] MEDS ORDERED: AZITHROMYCIN 250 MG TABLET PO ONE (12:18)
--- NOTE | 2020-01-13 13:17 | ER Document Report ---
Entered by CHET BILL SCRIBE 01/13/20 0802 Acting as scribe for:EDU QUESADA MD ED General - General Chief Complaint: Chest Pain Stated Complaint: CHEST PAIN,COUGH,SOB Mode of Arrival: Ambulatory Information source: Patient Notes: This 54 year old female patient with a history of HTN, CHF, A fib on Eliquis, pacemaker, and hypothyroidism presents to the ED today with complaints of chest congestion, wheezing, shortness of breath and productive cough for the past x4 days. Patient states that she brings up green/yellow/ramos sputum when she coughs, denies hemoptysis. She reports chest pain that started after waking up coughing this morning at 0230 and states that it hurts to take deep breaths. She also notes off and on fevers since onset. She mentions that she had rapid COVID test done on 01/10 at [facility] that was negative, but states that her PCP is going to send the test out for further testing. Patient is a current every day smoker, but states that she hasn't smoked since onset and would most likely quit. TRAVEL OUTSIDE OF THE [place] IN LAST 30 DAYS: No - Related Data Allergies/Adverse Reactions: carbamazepine [From Tegretol] Allergy (Verified 01/13/20 08:05) Home Medications: gabapentin, lamictal, engrinza, stratera, metroprolol, Baylar, Clonzapine Past Medical History - General Information source: Patient, [facility] Records - Social History Smoking Status: Current Every Day Smoker Smoking Education Provided: No Frequency of alcohol use: None Drug Abuse: None Lives with: Spouse/Significant other Family History: Reviewed & Not Pertinent Patient has suicidal ideation: No Patient has homicidal ideation: No - Past Medical History Cardiac Medical History: Reports: Hx Atrial Fibrillation, Hx Hypertension Pulmonary Medical History: Reports: Hx Sleep Apnea Endocrine Medical History: Reports: Hx Hypothyroidism Musculoskeletal Medical History: Reports Hx Arthritis Psychiatric Medical History: Reports: Hx Anxiety, Hx Bipolar Disorder, Hx Depression Past Surgical History: Reports: Hx Cardiac Surgery - x2: ASD patch placed in 1968, repaired/replaced 2014, Hx Pacemaker - 2015 - Immunizations Hx Diphtheria, Pertussis, Tetanus Vaccination: No Review of Systems - Review of Systems Constitutional: See HPI, Fever EENT: No symptoms reported Cardiovascular: See HPI, Chest pain Respiratory: See HPI, Cough, Short of breath, Sputum, Wheezing. denies: Hemoptysis Gastrointestinal: No symptoms reported Genitourinary: No symptoms reported Female Genitourinary: No symptoms reported Musculoskeletal: No symptoms reported Skin: No symptoms reported Hematologic/Lymphatic: Easy bruising Neurological/Psychological: No symptoms reported -: Yes All other systems reviewed and negative Physical Exam - Vital signs Vitals: Temp Pulse Resp BP Pulse Ox 98.1 F 66 17 147/75 H 100 01/13/20 06:54 01/13/20 06:54 01/13/20 06:54 01/13/20 06:54 01/13/20 06:54 - General General appearance: Appears well, Alert In distress: None - HEENT Head: Normocephalic, Atraumatic Eyes: Normal Pupils: PERRL - Respiratory Respiratory status: No respiratory distress Chest status: Tender - Anterior chest wall tenderness to palpation Breath sounds: Decreased air movement - Diminished breath sounds in the bases Chest palpation: Normal - Cardiovascular Rhythm: Regular - paced rhythm-70 bpm Murmur: No Friction rub: No Gallop: None auscultated - Abdominal Inspection: Obese Distension: No distension Bowel sounds: Normal Tenderness: Nontender - Abdomen soft Organomegaly: No organomegaly - Back Back: Normal, Nontender - Extremities General upper extremity: Normal inspection General lower extremity: Normal inspection. No: Edema - Neurological Neuro grossly intact: Yes Orientation: AAOx4 Rosebud Coma Scale Eye Opening: Spontaneous Rosebud Coma Scale Verbal: Oriented Rosebud Coma Scale Motor: Obeys Commands Josephine Coma Scale Total: 15 - Psychological Associated symptoms: Normal affect, Normal mood - Skin Skin Temperature: Warm Skin Moisture: Dry Skin Color: Normal Course - Re-evaluation Re-evalutation: 01/13/20 13:07 Patient is breathing has improved after breathing treatments and IV Solu-Medrol and IV magnesium. - Vital Signs Vital signs: Temp Pulse Resp BP Pulse Ox 98.1 F 66 14 130/85 H 100 01/13/20 06:54 01/13/20 06:54 01/13/20 12:01 01/13/20 12:01 01/13/20 12:01 01/13/20 13:07 Vital signs stable pulse ox 100% afebrile. Respiratory rate 14. - Laboratory Result Diagrams: 01/13/20 07:49 01/13/20 07:49 Laboratory results interpreted by me: 01/13/20 01/13/20 01/13/20 07:49 07:49 07:49 Plt Count 148 L Lymph % (Auto) 12.6 L Est GFR (MDRD) Non-Af 53 L NT-Pro-B Natriuret Pep 1110 H Patient laboratory shows an elevated BNP of 1110. Prior to this study patient had a BNP of 1400. Patient has a history of CHF. - Diagnostic Test Radiology reviewed: Image reviewed, Reports reviewed Radiology results interpreted by me: 01/13/20 13:08 Chest X-Ray 01/13/20 06:56 IMPRESSION: NO ACUTE RADIOGRAPHIC FINDING IN THE CHEST. No radiographic finding on the chest x-ray. No infiltrate. - EKG Interpretation by Me Additional EKG results interpreted by me: 01/13/20 13:10 Twelve-lead EKG shows atrial paced rhythm rate of 72 no acute changes noted AK interval within normal range QRS interval normal range QT interval normal range normal axis no acute ST elevation to suggest a STEMI. Discharge - Discharge Clinical Impression: Acute bronchitis with bronchospasm, Chest wall pain, Pacemaker Condition: Stable Disposition: HOME, SELF-CARE Instructions: Chest Wall Pain ([facility]) Additional Instructions: Bronchitis with Bronchospasm (Wheezing) You have bronchitis with bronchospasm (wheezing). Sometimes people develop wheezing with a chest cold. This occurs either because of an underlying tendency toward asthma or because the virus itself irritates the bronchial tubes. This irritation causes cough, shortness of breath, and wheezing. Emergency treatment of bronchospasm may include adrenaline shots or bronchodilator aerosol. You may feel lightheaded and have a rapid pulse for an hour or two. Rest and get plenty of fluids. At home, we'll treat you with a bronchodilator inhaler. Corticosteroids may be required for some patients. Until you recover, avoid chemical fumes, dusts, pollens, and exercising in very cold or dry air. If you smoke, stop now! Most cases of bronchitis get better without antibiotics. We prescribe antibiotics when we believe bacteria are damaging your airways, or if there's high risk the bronchitis will worsen into pneumonia. Increase your fluid intake. A cool mist humidifier may make your lungs more comfortable. An expectorant (cough medicine that loosens phlegm) can help. Repeated episodes of bronchitis and bronchospasm may result in lung damage -- for example, chronic bronchitis, recurrent pneumonias, or emphysema. If you develop a fever, increased wheezing, chest pain, or severe shortness of breath, you should contact the doctor immediately. Asthma You have been diagnosed as having asthma. This is a condition where there is episodic tightness in the bronchial tubes. Allergies, infections, and polluted or cold air may be contributing factors. Emergency treatment of a severe asthma attack may include adrenaline shots, or bronchodilator aerosol. You may feel lightheaded, have a decreased exercise tolerance and a rapid pulse for an hour or two. Rest and get plenty of fluids. Home treatment of asthma requires bronchodilator drugs. These can be administered by injection, inhalation, or by mouth. Antibiotics and corticosteroids may be required for some patients. You should avoid chemical fumes, dusts, pollens, and exercising in very cold or dry air. If you smoke, stop!! If you develop a fever, increased wheezing, chest pain, or severe shortness of breath, you should contact the doctor immediately Prescriptions: Methylprednisolone [Medrol Dosepack (4 mg/Tab) 21 Tab/Dosepak] 4 mg PO ASDIR PRN #21 tab.ds.pk PRN Reason: Guaifenesin/Dextromethorphan [Mucus Rlf Dm ER 600-30 mg Tab] 1 each PO BID #20 tab.er.12h Azithromycin [Zithromax 250 mg Tablet] 250 mg PO ASDIR #6 tablet I personally performed the services described in the documentation, reviewed and edited the documentation which was dictated to the scribe in my presence, and it accurately records my words and actions.
[2020-01-13 13:35] VITALS: BP 130/66
== END 2020-01-13 14:13 | disposition home or self-care (01) ==
LOC: ER 06:35
DX: J20.9 Acute bronchitis, unspecified (principal); R07.89 Other chest pain; F17.200 Nicotine dependence, unspecified, uncomplicated; I11.0 Hypertensive heart disease with heart failure; I50.9 Heart failure, unspecified; I48.91 Unspecified atrial fibrillation; Z79.02 Long term (current) use of antithrombotics/antiplatelets; Z95.0 Presence of cardiac pacemaker
CPT/HCPCS: 93005; 94640; 99285; 96361; 96375; 96365; 96366; 36415; 82553; 82550; 85025; 80053; 84484; 85379; 83880; 71045; 93010; A9270; J2930; J3475; J7030